=== PATIENT | female | born 1955 | race Caucasian/White ===

== ENCOUNTER 2025-10-31 14:55 | Outpatient (CLI) | payer MEDICARE, SELFPAY ==
[2025-10-31 16:33] LABS: Microscopic, Urine URINE MICROSCOPIC (MICROSCOPIC)
[2025-10-31 17:07] LABS: Hematocrit 37.4 % (37.0-47.0); Hemoglobin 12.1 g/dL (12.2-16.2); Immature Granulocytes % 0.5 %; Mean Corpuscular HGB Conc 32.4 g/dL (31.8-35.4); Mean Corpuscular Hemoglobin 29.5 pg (27.0-31.2); Mean Corpuscular Volume 91.2 fl (81-99); Nucleated Red Blood Cells % 0 %; Platelet Count 219 K/mm3 (142-424); Red Blood Count 4.10 M/mm3 (4.20-5.40); Red Cell Distribution Width-SD 42.5 fL; White Blood Count 8.5 K/mm3 (4.8-10.8)
[2025-10-31 18:06] LABS: Alanine Aminotransferase 14 U/L (12-78); Albumin Level 4.3 g/dl (3.5-5.0); Albumin/Globulin Ratio 1.3 (1.1-1.8); Alkaline Phosphatase 123 U/L (38-126); Anion Gap 14.6 mEq/L (5-15); Aspartate Amino Transferase 20 U/L (14-36); Bilirubin,Total 0.3 mg/dl (0.2-1.3); Blood Urea Nitrogen 18 mg/dl (7-17); Calcium 9.3 mg/dl (8.4-10.2); Carbon Dioxide 25 mmol/L (22.0-30.0); Chloride 103 mmol/L (98-107); Cholesterol 187 mg/dl (140-200); Creatinine,Serum 1.00 mg/dl (0.52-1.04); Estimated Glomerular Filt Rate 55 ml/min (>60); GFR (African American) 67 ML/MIN (>60); Globulin 3.4 g/dL (1.3-3.2); Glucose 102 mg/dl (74-100); HDL Cholesterol 53 mg/dl (40-60); Iron 96 ug/dL (37-170); Potassium 4.6 mmoL/L (3.5-5.1); Sodium 138 mmol/L (136-145); Total Protein,Serum 7.7 g/dl (6.3-8.2); Triglycerides 397 mg/dl (30-150)
[2025-10-31 18:16] LABS: Total Iron Binding Capacity 284 ug/dL (265-497)
[2025-10-31 18:40] LABS: Thyroid Stimulating Hormone 2.47 uIU/mL (0.465-4.68)
[2025-10-31 18:44] LABS: Ferritin 14.0 ng/ml (11.1-264)
[2025-10-31 18:59] LABS: Vitamin B12 593 pg/mL (239-931)
[2025-10-31 19:02] LABS: 25-OH Vitamin D, Total 20.4 ng/mL (30-100)
[2025-10-31 19:03] LABS: Free T4 (Free Thyroxine) 0.96 ng/dl (0.78-2.19)
[2025-10-31 19:38] LABS: Bilirubin,Urine Negative (Negative); Color,Urine YELLOW (Yellow); Glucose,Urine (UA) Negative (Negative); Ketones,Urine Negative (Negative); Leukocyte Esterase,Urine Negative (Negative); PH,Urine 5.5 (5.0-8.5); Protein,Urine Negative (Negative); Specific Gravity, Urine 1.025 (1.005-1.030); Urobilinogen,Urine 0.2 EU/dl (0.2)
[2025-10-31 21:10] LABS: Bacteria,Urine Trace /lpf; Squamous Epithelial Cell,Urine Occasional #/hpf (0-5); WBC,Urine Occasional #/hpf (0-3)
[2025-10-31 21:51] LABS: Hemoglobin A1C 5.7 % (4.0-6.0)
== END 2025-10-31 23:59 | disposition home or self-care (01) ==
LOC: LAB.DROPOF 11-01 14:47
PROVIDERS: Visit Provider Nurse Practitioner Family
DX: C50.911 Malignant neoplasm of unspecified site of right female breast (principal); E78.5 Hyperlipidemia, unspecified; F41.9 Anxiety disorder, unspecified; F32.A Depression, unspecified; E03.9 Hypothyroidism, unspecified; K21.9 Gastro-esophageal reflux disease without esophagitis; N32.81 Overactive bladder; E66.9 Obesity, unspecified; S60.410A Abrasion of right index finger, initial encounter; L08.9 Local infection of the skin and subcutaneous tissue, unspecified; Z78.0 Asymptomatic menopausal state; G43.909 Migraine, unspecified, not intractable, without status migrainosus; I10 Essential (primary) hypertension; G47.33 Obstructive sleep apnea (adult) (pediatric); E11.9 Type 2 diabetes mellitus without complications; R41.3 Other amnesia; M81.0 Age-related osteoporosis without current pathological fracture
CPT/HCPCS: 80053; 80061; 81001; 82043; 82306; 82570; 82607; 82728; 83036; 83540; 83550; 84156; 84439; 84443; 85025; 87086

== ENCOUNTER 2025-11-02 08:23 | Emergency (ER) | payer MEDICARE, SELFPAY ==
[2025-11-02 08:37] VITALS: BP 130/54; PULSE 87; RESP 16; TEMP 37.1; O2SAT 96; BMI 39.4
--- NOTE | 2025-11-02 08:47 | HMH.EDGENADL ---
Discharge Plan Disposition Patient Disposition: Home, Self-Care Prescriptions Prescriptions: New sulfamethoxazole-trimethoprim [Bactrim DS] 800-160 mg tablet 1 tab PO DAILY 7 Days Qty: 7 0RF No Action (DME) lancing device with lancets [Accu-Chek Soft Dev Lancets] Kit See Rx Instructions .ROUTE .MEDSUPPLY Qty: 1 Rx Instructions: As directed mupirocin [Centany] 2 % ointment 1 applic topical TID Qty: 15 0RF amlodipine 10 mg tablet 10 mg PO DAILY Qty: 90 3RF anastrozole 1 mg tablet 1 mg PO DAILY Qty: 30 0RF atorvastatin 20 mg tablet 20 mg PO QHS Qty: 90 3RF carbamazepine 200 mg tablet 200 mg PO TID Qty: 270 3RF cholecalciferol (vitamin D3) 10 mcg (400 unit) capsule 10 mcg PO DAILY Qty: 90 3RF citalopram 40 mg tablet 40 mg PO DAILY Qty: 90 3RF famotidine 20 mg tablet 20 mg PO BID Qty: 180 3RF hydroxyzine HCl 50 mg tablet 50 mg PO TID Qty: 90 3RF levothyroxine 112 mcg tablet 112 mcg PO QAM Qty: 90 3RF losartan 100 mg tablet 100 mg PO DAILY Qty: 90 3RF metformin 500 mg tablet 500 mg PO BID Qty: 180 3RF multivitamin Tablet 1 tab PO DAILY Qty: 90 3RF nitroglycerin 0.4 mg tablet, sublingual 0.4 mg sublingual Q5M PRN (Reason: chest pain) Qty: 30 5RF Rx Instructions: do not exceed 3 doses per episode oxybutynin chloride 5 mg tablet 5 mg PO DAILY Qty: 90 3RF Referrals Follow up/Referrals: April Sargent APRN [Primary Care Provider, Family Practice] - See instructions Activity Restrictions/Add. Instructions Additional Instructions/Restrictions: At this time it was felt you are safe to be discharged home. If new or worsening symptoms please do not hesitate to return the emergency department. Please take your antibiotics as prescribed. Please follow-up with April Sargent at 1 PM on Friday to make sure things are headed in the right direction. It is okay to shower, do not submerge your wound in water such as a hot tub or a bath. Clinical Impressions Clinical Impression: Abscess, Cellulitis Print Language Print Language: Ugandan Discharge ED Provider: Marty Morrissey General Adult HPI General Stated complaint: Infection inside R thigh Time Seen by Provider: 11/02/25 08:24 History of Present Illness HPI narrative: Patient is a 69-year-old female with past medical history of [id number] diabetes who presents to the emergency department for evaluation of a boil. Onset was acute over the last 72 hours, on her posterior right upper thigh. Due to persistent pain with sitting and no improvement she presents here for continued evaluation. No other acute complaints at this time. Please note that above description of symptoms, in this electronic medical record under categorization of recalled from ER triage doctor by RN are reflective of an initial nursing assessment, however, is not reflective of my full history and physical exam that was personally taken and clarified. Consequentially, this preceding description of symptoms, which may include the patient's categorized chief complaint in the EMR, do not reflect my personal clinical impression, and the ultimate description of history of present illness and patient stated complaints should be deferred to this section of the note. Unless stated otherwise or congruent with this section of the note, additional signs, symptoms, or incongruence should be interpreted as inaccurate with my clinical impression. Related Data Home Medications ?Medication ?Instructions ?Recorded ?Confirmed lancing device with lancets kit #1 ea 10/31/25 10/31/25 (Accu-Chek Softclix Lancing Device+Lancets kit) Previous Rx's ?Medication ?Instructions ?Recorded amlodipine 10 mg tablet 10 mg PO DAILY #90 tabs 10/31/25 anastrozole 1 mg tablet 1 mg PO DAILY #30 tabs 10/31/25 atorvastatin 20 mg tablet 20 mg PO QHS #90 tabs 10/31/25 carbamazepine 200 mg tablet 200 mg PO TID #270 tabs 10/31/25 cholecalciferol (vitamin D3) 10 10 mcg PO DAILY #90 caps 10/31/25 mcg (400 unit) capsule citalopram 40 mg tablet 40 mg PO DAILY #90 tabs 10/31/25 famotidine 20 mg tablet 20 mg PO BID #180 tabs 10/31/25 hydroxyzine HCl 50 mg tablet 50 mg PO TID #90 tabs 10/31/25 levothyroxine 112 mcg tablet 112 mcg PO QAM #90 tabs 10/31/25 losartan 100 mg tablet 100 mg PO DAILY #90 tabs 10/31/25 metformin 500 mg tablet 500 mg PO BID #180 tabs 10/31/25 multivitamin 1 tab PO DAILY #90 tabs 10/31/25 mupirocin 2 % topical ointment 1 applic topical TID #15 grams 10/31/25 (Centany) nitroglycerin 0.4 mg sublingual 0.4 mg sublingual Q5M PRN chest 10/31/25 tablet pain #30 tabs oxybutynin chloride 5 mg tablet 5 mg PO DAILY #90 tabs 10/31/25 sulfamethoxazole 800 1 tab PO DAILY cellulitis 7 days 11/02/25 mg-trimethoprim 160 mg tablet #7 tabs (Bactrim DS) Allergies Allergy/AdvReac Type Severity Reaction Status Date / Time phenytoin (From Dilantin) Allergy Intermediate itching Verified 10/31/25 13:53 Penicillins Allergy Mild itching Verified 10/31/25 13:53 codeine AdvReac Mild Hives Verified 10/31/25 13:53 phenobarbitol Allergy Mild Hives Uncoded 10/31/25 13:53 [facility] Disclaimer: The information contained in this section may have been updated after the patient was seen, as this information can be updated by other users. Medical History (Updated 11/02/25 @ 08:45 by Marty Morrissey MD) Migraines Pre-diabetes Hypertension Surgical History (Updated 10/31/25 @ 14:55 by April Sargent APRN) History of hysterectomy History of appendectomy History of cholecystectomy History of mastectomy Family History (Updated 10/31/25 @ 13:57 by Loan Kaufman MA) Other Cancer Heart attack Social History (Updated 10/31/25 @ 13:57 by Loan Kaufman MA) Smoking Status: Never smoker alcohol intake: never substance use type: denies use current occupational status: disabled Travel in the last 8 weeks?: None household members: significant other Other Medical History Have you received the Pneumonia Vaccine: No ROS Obtained: Yes Systems reviewed as appropriate & no additional complaints except as documented Physical Exam General General appearance: alert and in no apparent distress Head Head exam: atraumatic and normocephalic Eye Eye exam: Present PERRL and EOMI ENT ENT exam: Present mucous membranes moist Neck Neck exam: Present normal inspection Chest Chest inspection: Present normal inspection and symmetric chest wall rise Respiratory Respiratory exam: Absent respiratory distress Cardiovascular Cardiovascular exam: Present regular rate and normal rhythm Abdominal Exam Abdominal exam: Present soft; Absent tenderness Bimanual exam: Present other (No extension of cellulitis or boil into the perineum or perianal areas) Extremities Exam Extremities exam: Present other (1 cm area of induration with central pustule with surrounding blanchable cellulitic changes over the right posterior thigh); Absent normal inspection Neurological Exam Neurological exam: Present alert Psychiatric Psychiatric exam: Present normal affect Skin Skin exam: Present warm and dry Medical Decision Making Medical Records Screening: Per USPSTF and CDC recommendations, given the prevalence of disease in our region, it is our hospital?s policy to screen for HIV and viral Hepatitis for all patients aged 18 and over and those with ongoing risk factors. Brennan Inquiry Pt receiving controlled substance: No Orders (Tests/Meds): ORDERS Category Date Time Status POCUS Point of Care (ER Only) Stat Exams 11/02/25 08:30 Ordered Medical Decision Narrative: In summary patient is a 69-year-old female with past medical history described above who presents to the emergency department for evaluation of a boil. Patient is hemodynamically stable and nontoxic-appearing upon arrival, afebrile. [id number] ultrasound at bedside shows small subcentimeter fluid collection with surrounding cellulitic changes. No concern for deep space infection that tracks into the perineum based on physical exam and ultrasound. Shared decision making discussion was had over the utility of lancing it and we proceeded to se[place]our with minimal expression of purulent fluid with an 11 blade. Wound was dressed with nonstick dressing and patient is appropriate for discharge at this time will be discharged with a course of Bactrim and an appointment was arranged with her PCP this coming Friday to ensure things are headed in the right direction she was given return precautions. [employer] disclaimer Much of this encounter note is an electronic tool technician spoken language to printed text. Electronic tool technician of the spoken language may permit errors. Although I have reviewed the note, some errors may still exist. Critical Care Critical Care Time Critical Care Time: No
[2025-11-02] MEDS: LIDOCAINE 1% W/EPI 1:100,000 20ML VIAL 5 ML SQ (08:53)
[2025-11-02 08:54] VITALS: BP 145/75; PULSE 84; RESP 15; TEMP 37; O2SAT 99
== END 2025-11-02 08:54 | disposition home or self-care (01) ==
PROVIDERS: Emergency Provider Emergency Medicine; PCP Nurse Practitioner Family
DX: L02.415 Cutaneous abscess of right lower limb (principal); L03.115 Cellulitis of right lower limb; E11.9 Type 2 diabetes mellitus without complications; I10 Essential (primary) hypertension; Z79.84 Long term (current) use of oral hypoglycemic drugs
CPT/HCPCS: 10060; 99284; J2004

== ENCOUNTER 2025-11-05 21:14 | Emergency (ER) | payer MEDICARE, SELFPAY ==
[2025-11-05] VITALS (7 sets, daily range): BP systolic 133–142; BP diastolic 54–67; PULSE 75–85; RESP 17; TEMP 37.1; O2SAT 91–96; BMI 39.4
--- NOTE | 2025-11-05 21:14 | ED_ITS ---
<Statement entered by Alvaro Groves MD - 11/05/25 22:02> I was consulted by the JOHN, and we discussed the complexity of the problems being addressed. I approve the treatment and management plan for this patient's care in the emergency department, thus performing a substantive portion of the medical decision making. Alvaro Groves MD Discharge Plan Disposition Patient Disposition: Home, Self-Care Condition: Good Prescriptions Prescriptions: No Action (DME) lancing device with lancets [Accu-Chek Soft Dev Lancets] Kit See Rx Instructions .ROUTE .MEDSUPPLY Qty: 1 Rx Instructions: As directed mupirocin [Centany] 2 % ointment 1 applic topical TID Qty: 15 0RF amlodipine 10 mg tablet 10 mg PO DAILY Qty: 90 3RF anastrozole 1 mg tablet 1 mg PO DAILY Qty: 30 0RF atorvastatin 20 mg tablet 20 mg PO QHS Qty: 90 3RF carbamazepine 200 mg tablet 200 mg PO TID Qty: 270 3RF cholecalciferol (vitamin D3) 10 mcg (400 unit) capsule 10 mcg PO DAILY Qty: 90 3RF citalopram 40 mg tablet 40 mg PO DAILY Qty: 90 3RF famotidine 20 mg tablet 20 mg PO BID Qty: 180 3RF hydroxyzine HCl 50 mg tablet 50 mg PO TID Qty: 90 3RF levothyroxine 112 mcg tablet 112 mcg PO QAM Qty: 90 3RF losartan 100 mg tablet 100 mg PO DAILY Qty: 90 3RF metformin 500 mg tablet 500 mg PO BID Qty: 180 3RF multivitamin Tablet 1 tab PO DAILY Qty: 90 3RF nitroglycerin 0.4 mg tablet, sublingual 0.4 mg sublingual Q5M PRN (Reason: chest pain) Qty: 30 5RF Rx Instructions: do not exceed 3 doses per episode oxybutynin chloride 5 mg tablet 5 mg PO DAILY Qty: 90 3RF sulfamethoxazole-trimethoprim [Bactrim DS] 800-160 mg tablet 1 tab PO DAILY 7 Days Qty: 7 0RF Referrals Follow up/Referrals: April Sargent APRN [Primary Care Provider, Family Practice] - See instructions Activity Restrictions/Add. Instructions Additional Instructions/Restrictions: Please return to the emergency department with any worsening signs or symptoms. Please continue to take your antibiotic as prescribed. Please follow-up with your family doctor and other doctors in the upcoming days/weeks. Clinical Impressions Clinical Impression: Abscess Instructions Patient Instructions: DI for Skin Abscess, Boil Print Language Print Language: Yakut Discharge ED Provider: Alvaro Groves Adult HPI General Chief complaint: Skin/Abscess/Foreign Body Stated complaint: Boil on Right Inner Thigh Time Seen by Provider: 11/05/25 21:14 Mode of Arrival: EMS Source of Information: Patient Description of Symptoms (Recalled from ER Triage Doc. by RN): Pt presents to ER via EMS for a boil on her R inner thigh. Pt states that she was seen here 3 days ago for the boil, got it drained, and sent home with cream. Pt reports that boil has been draining fine up until today when draining stopped and boil started to swell again. History of Present Illness HPI narrative: 69-year-old female presents to the emergency department via EMS for a right posterior thigh boil , patient was seen in the emergency department 3 days ago for similar complaint, had the area I&D with an 11 blade, and was placed on Bactrim p.o. DS she has been taking medication as prescribed. Patient denies a [place] fever chills chest pain shortness of breath nausea vomiting constipation diarrhea no urinary symptomatology, patient is a former smoker denies any alcohol or drug use, states emergency visit today prompted by the boil stopped draining and started to swell again , patient endorsed soreness to the area but denies any overt new pain, other past medical history is consistent with insulin-dependent T2DM, hyperlipidemia, migraines, YEIMY/MDD, GERD, OAB, hypertension. Initial triage vitals unremarkable Please note that above description of symptoms, in this electronic medical record under categorization of recalled from ER triage doctor by RN are reflective of an initial nursing assessment, however, is not reflective of my full history and physical exam that was personally taken and clarified. Consequentially, this preceding description of symptoms, which may include the patient's categorized chief complaint in the EMR, do not reflect my personal clinical impression, and the ultimate description of history of present illness and patient stated complaints should be deferred to this section of the note. Unless stated otherwise or congruent with this section of the note, additional signs, symptoms, or incongruence should be interpreted as inaccurate with my clinical impression. Onset (ago): day(s) Related Data Home Medications ?Medication ?Instructions ?Recorded ?Confirmed lancing device with lancets kit #1 ea 10/31/25 5 (Accu-Chek Softclix Lancing Device+Lancets kit) Previous Rx's ?Medication ?Instructions ?Recorded amlodipine 10 mg tablet 10 mg PO DAILY #90 tabs 07/18 anastrozole 1 mg tablet 1 mg PO DAILY #30 tabs 10/31 atorvastatin 20 mg tablet 20 mg PO QHS #90 tabs carbamazepine 200 mg tablet 200 mg PO TID #270 tabs cholecalciferol (vitamin D3) 10 10 mcg PO DAILY #90 ca ps 10/31/25 mcg (400 unit) capsule citalopram 40 mg tablet 40 mg PO DAILY #90 tabs 07/18 famotidine 20 mg tablet 20 mg PO BID #180 tabs 10/31 hydroxyzine HCl 50 mg tablet 50 mg PO TID #90 tabs 07/18 levothyroxine 112 mcg tablet 112 mcg PO QAM #90 tabs 1 01/01/25 losartan 100 mg tablet 100 mg PO DAILY #90 tabs 07/18 metformin 500 mg tablet 500 mg PO BID #180 tabs 07/18 multivitamin 1 tab PO DAILY #90 tabs 07/18 mupirocin 2 % topical ointment 1 applic topical TID #1 5 grams 10/31/25 (Centany) nitroglycerin 0.4 mg sublingual 0.4 mg sublingual Q5M PRN chest 10/31/25 tablet pain #30 tabs oxybutynin chloride 5 mg tablet 5 mg PO DAILY #90 tabs 10/31/25 sulfamethoxazole 800 1 tab PO DAILY cellulitis 7 days 11/02/25 mg-trimethoprim 160 mg tablet #7 tabs (Bactrim DS) Allergies Allergy/AdvReac Type Severity Reaction Status Date / Time phenytoin (From Dilantin) Allergy Intermediate itching Verified 10/31/25 13:53 Penicillins Allergy Mild itching Verified 10/31/25 13:53 codeine AdvReac Mild Hives Verified 10/31/25 13:53 phenobarbitol Allergy Mild Hives Uncoded 10/31/25 13:53 [facility] Disclaimer: The information contained in this section may have been updated after the patient was seen, as this information can be updated by other users. Medical History (Updated 11/05/25 @ 21:48 by SEN Molina) Migraines Pre-diabetes Hypertension Surgical History (Updated 10/31/25 @ 14:55 by April Sargent APRN) History of hysterectomy History of appendectomy History of cholecystectomy History of mastectomy Family History (Updated 10/31/25 @ 13:57 by Loan Kaufman MA) Other Cancer Heart attack Social History (Updated 10/31/25 @ 13:57 by Loan Kaufman MA) Smoking Status: Former smoker alcohol intake: never substance use type: denies use current occupational status: disabled Travel in the last 8 weeks?: None household members: significant other Have you lived/traveled outside [place] in past 30 days?: No Contact w/someone who lives/traveled outside [place] past 30 days?: No Exposure to someone with infectious disease in past 14 days?: No Do you have a fever (greater than 100.4 F or 38 C)?: No Have you tested positive for COVID-19?: No Exposed to someone with COVID-19 in past 14 days?: No Do you have a sore throat?: No Do you have a cough?: No Do you have any weakness?: No Do you have any diarrhea?: No Are you experiencing any unusual bleeding?: No Do you have any muscle aches/pain?: No Do you have any abdominal pain?: No Are you experiencing loss of taste or smell?: No Other Medical History Have you received the Pneumonia Vaccine: No ROS Obtained: Yes All systems reviewed & no additional complaints except as documented Physical Exam General General appearance: alert and in no apparent distress Head Head exam: atraumatic and normocephalic Eye Eye exam: Present PERRL and EOMI ENT ENT exam: Present mucous membranes moist Neck Neck exam: Present normal inspection Chest Chest inspection: Present normal inspection and symmetric chest wall rise Respiratory Respiratory exam: Present normal lung sounds bilaterally; Absent respiratory distress Cardiovascular Cardiovascular exam: Present regular rate and normal rhythm Abdominal Exam Abdominal exam: Present soft; Absent tenderness Extremities Exam Extremities exam: Present normal inspection Neurological Exam Neurological exam: Present alert and oriented X3 Psychiatric Psychiatric exam: Present normal affect Skin Skin exam: Present warm, dry, erythema and other (Area of erythema, minimal fluctuant and what looks like furuncle versus carbuncle in the right posterior thigh, with active purulent drainage) Medical Decision Making Medical Records Medical records reviewed: Yes I reviewed the patient's medical records. Screening: Per USPSTF and CDC recommendations, given the prevalence of disease in our region, it is our hospital?s policy to screen for HIV and viral Hepatitis for all patients aged 18 and over and those with ongoing risk factors. Brennan Inquiry Pt receiving controlled substance: No Brennan was queried for this patient: No Vital Signs: 11/05/25 21:07 11/05/25 21:14 11/05/25 21:15 Temperature 98.8 F Temperature Source Oral Pulse Rate 75 77 Pulse Rate [Left Radial] 85 Respiratory Rate 17 Blood Pressure [Right Arm] 142/67 H Blood Pressure Mean [Right Arm] 92 Blood Pressure Source [Right Arm] Automatic Cuff Blood Pressure Position [Right Arm] Sitting 02 Sat by Pulse Oximetry 96 91 L Oxygen Delivery Method Room Air Room Air Medical Decision Narrative: 69-year-old female presents emergency department via EMS for a right posterior thigh differential diagnose include but not limited to, furuncle, carbuncle, cellulitis, abscess among others. I discussed this patient's case with the attending physician I after obtaining informed consent, performed I&D at the bedside, after sterile procedure was performed, copious irrigation, see procedure note for full details, offered sedation versus analgesia to the patient the bedside, patient denied at this time would like to pursue stab incision and drainage. Utilizing 11 blade and very small stab incision, 25 cc of purulent drainage and blood was expelled from the area, patient tolerated the procedure well. Wound dressing with bacitracin was applied postprocedure. Patient was given strict ED return precautions, patient was advised to stay on her p.o. antibiotic as prescribed. Keep the area clean and dry and covered. Patient has slated follow-up for this in the upcoming days I have asked her to keep this appointment. Patient voiced understanding and agreement with the current treatment plan/discharge plan. Procedures Abscess I/D Site: lower extremity Side (if applicable): right Sedation/analgesia: none Local Anesthetic: other anesthetic Technique: incised with #11 blade Amount of fluid expressed (mL): 25 Irrigation: Yes Packing used?: none Critical Care Critical Care Time Critical Care Time: No
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
--- OUTSIDE RECORDS SUMMARY | 2025-11-05 21:22 | XMS_ITS | Encounter Summary ---
Author Organization Healthcare Address [address] [id number] Care Team Providers Care Managed Care Manager Name Role Phone Zan Sidhu MD Primary Care Provider [phone] Emerita Cook Unavailable Unavailable Encounter Details Date Type Department Care Team (Late st Contact Info) Description 10/07/2025 [facility] Internal Medicine [address], [address] [place] [address] Zan Sidhu MD [address] [phone] Social History Tobacco Use Types Packs/Day Years [...] Never 08/21/2023 How often do you attend chur ch or anglican services? More than 4 times per year 08/21/2023 Do you belong to any clubs o r organizations such as holiness groups, unions, fraternal or athletic groups, or [...] Recorded Patient Health Questionnaire-2 Score 0 05/05/2025 [facility] - Occupational Stress Questionnaire Answer Date Recorded [...] place to sleep or slept in a jail (including now)? No 08/09/2024 PHQ-9 Answer Date [...] any time in the past 12 m [facility], were you homeless or living in a jail (including now)? No 04/04/2025 AUDIT-C Answer Date [...] drink first t radha in the morning (EYE-JIG BUILDER HELPER) to steady your nerves or to get rid of a hangover? 0 03/01/2023 CAGE Questionnaire Score 0 023 Utilities Answer Date Recorded In the past 12 months has th e electric, gas, oil, or water [employer] threatened to shut off services in your home? No 04/04/2025 PHQ-2A Answer Date Recorded Patient Health Questionnaire-2 Score 0 01/14/2023 Comments No Sex and Gender Information Value Date Recorded Sex Assigned at Not on file Legal Sex Female 7:27 PM EDT Gender Identity Not on file Sexual Orientation Not on file documented as of this encounter Miscellaneous Notes * Telephone Encounter - Zan Lawler, PharmD - 10/07/2025 4:15 PM EST 1 medication(s) has been approved per protocol. Please keep upcoming appointment for additional refills. Medications have been pended for refill atupcoming appointment. documented in this encounter Plan of Treatment Upcoming Encounters Date Type Department Care Team (Late st Contact Info) Description 11/25/2025 9:30 AM EST Appointment [facility] [address] [address] [address] [facility] [address] [place] [address] 11/25/2025 10:30 AM EST Office Visit [facility] Breast Care [place] [address] [facility], [address]nd [place] [address] Olivia Feldman MD [address] [facility] [address] [address] documented as of this encounter Visit Diagnoses [...] documented as of this encounter Care Teams Managed Care Manager Relationship Specialty Start Date End Date Zan Sidhu MD [address] [place] [address] PCP - General Internal Medicine 05/24/25 [place] [address] Glass Inserter 09/01/25 10/31/25 documented as of this encounter
--- OUTSIDE RECORDS SUMMARY | 2025-11-05 21:22 | XMS_ITS | Encounter Summary ---
Author Organization Healthcare Address [address] [place] [address] Care Team Providers Care Hard Tile Setter Apprentice Name Role Phone Zan Sidhu MD Primary Care Provider Emerita Cook Unavailable Unavailable Reason for Visit * Reason Comments SW NOTE Encounter Details Date Type Department Care Team (Late st Contact Info) Description 09/06/2025 [facility] Work [facility] Internal Medicine [address], [address]rd [place] [address] Pam Eaton [address] Social History Tobacco Use Types Packs/Day Years [...] Never 08/21/2023 How often do you attend [facility] or alevism services? More than 4 times per year 08/21/2023 Do you belong to any clubs o r organizations such as jain groups, unions, fraternal or athletic groups, or [...] Recorded Patient Health Questionnaire-2 Score 0 05/05/2025 [facility] - Occupational Stress Questionnaire Answer Date [...] place to sleep or slept in a assisted (including now)? No 08/09/2024 PHQ-9 Answer Date [...] any time in the past 12 m [facility], were you homeless or living in a assisted (including now)? No 04/04/2025 AUDIT-C Answer Date [...] drink first t radha in the morning (EYE-PLANT PHYSIOLOGY TEACHER) to steady your nerves or to get rid of a hangover? 0 03/01/2023 CAGE Questionnaire Score 0 023 Utilities Answer Date Recorded In the past 12 months has th e electric, gas, oil, or water company threatened to shut off services in your home? No 04/04/2025 PHQ-2A Answer Date Recorded Patient Health Questionnaire-2 Score 0 01/14/2023 Comments No Sex and Gender Information Value Date Recorded Sex Assigned at Not on file Legal Sex Female 7:27 PM EDT Gender Identity Not on file Sexual Orientation Not on file documented as of this encounter Miscellaneous Notes * Clinician Note - Pam Eaton - 09/06/2025 1:58 PM EDT ROBERT lvm for Pt requesting a call back . * Clinician Note - Pam Eaton - 09/06/2025 1:58 PM EDT ROBERT left another VM for patient requesting a call back. documented in this encounter Plan of Treatment Upcoming Encounters Date Type Department Care Team (Late st Contact Info) Description 11/25/2025 9:30 AM EST Appointment [facility] [address] [address] [address] [facility] [address] [place] [address] 11/25/2025 10:30 AM EST Office Visit [facility] [address] [facility], 2nd [place] [address] Olivia Feldman MD [address] [facility] [address] [facility] [address] [place] [address] documented as of this encounter Visit Diagnoses [...] documented as of this encounter Care Teams Hard Tile Setter Apprentice Relationship Specialty Start Date End Date Zan Sidhu MD [address] [place] [address] PCP - General Internal Medicine 05/24/25 [place] [address] Log Chipper Operator 09/01/25 10/31/25 documented as of this encounter
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
--- OUTSIDE RECORDS SUMMARY | 2025-11-05 21:22 | XMS_ITS | Encounter Summary ---
Author Organization Healthcare Address [address] [id number] Care Team Providers Care Electronic Service Technician Name Role Phone Zan Sidhu MD Primary Care Provider Javidcandie Emerita Unavailable Unavailable Encounter Details Date Type Department Care Team (Late st Contact Info) Description 10/06/2025 [facility] Internal Medicine [address], [address]rd [place] [address] Whitney Hoover [address] [place] [address] Type 2 diabetes mellitus without complication, without long-term current use of insulin Social History Tobacco Use Types Packs/Day Years [...] 08/21/2023 How often do you attend chur or jain services? More than 4 times per year 08/21/2023 Do you belong to any clubs o r organizations such as yazidism groups, unions, fraternal or athletic groups, or [...] Recorded Patient Health Questionnaire-2 Score 0 05/05/2025 [facility] - Occupational Stress Questionnaire Answer Date Recorded [...] place to sleep or slept in a penitentiary (including now)? No 08/09/2024 PHQ-9 Answer Date [...] any time in the past 12 m [facility], were you homeless or living in a penitentiary (including now)? No 04/04/2025 AUDIT-C Answer Date [...] drink first t radha in the morning (EYE-JANITOR CARETAKER) to steady your nerves or to get [...] encounter Miscellaneous Notes * Telephone Encounter - Ellie Yeh, PharmD - 10/07/2025 2:00 PM EST 1 medication(s) has been approved per protocol. Please keep upcoming appointment 10/19/25 for additional refills. Medications have been pended for refill at upcoming appointment. documented in this encounter Plan of Treatment Upcoming Encounters Date Type Department Care Team (Late st Contact Info) Description 11/25/2025 9:30 AM EST Appointment [facility] [address] [place] [address] 11/25/2025 10:30 AM EST Office Visit [facility] Breast Care Center [address] [facility], 2nd [place] [address] Olivia Feldman MD [address] [address] documented as of this encounter Visit Diagnoses Diagnosis Type 2 diabetes mellitus without complication, without long-term current use of insulin documented in this encounter Additional Health Concerns Assessment Noted Time PHQ-9 Depression Total Score: 0 05/05/20 10:21 AM EDT A fall risk assessment has been complete d for the patient 07/13/2025 11:13 AM EDT A Body Mass Index follow-up plan has been documented for the patient 07/13/2025 11:59 AM EDT documented as of this encounter Care Teams Electronic Service Technician Relationship Specialty Start Date End Date Zan Sidhu MD [address] [place], [place] [phone] PCP - General Internal Medicine 05/24/25 [place] [address] Media Buyer 09/01/25 10/31/25 documented as of this encounter
--- OUTSIDE RECORDS SUMMARY | 2025-11-05 21:22 | XMS_ITS | Encounter Summary ---
Author Organization Healthcare Address [address] [place] [address] Care Team Providers Care Career Placement Services Counselor Name Role Phone Zan Sidhu MD Primary Care Provider [phone] JavidJulienne schreiberyl Unavailable Unavailable Encounter Details Date Type Department Care Team (Late st Contact Info) Description 10/06/2025 Refill [facility] [address] [place] [address] Olivia Feldman MD [address] [facility] [address] [place] [address] Malignant neoplasm of 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, estrogen receptor positive Social History Tobacco Use Types Packs/Day Years [...] How often do you attend chur or latter-day services? More than 4 times per year 08/21/2023 Do you belong to any clubs o r organizations such as pentecostalism groups, unions, fraternal or athletic groups, or [...] Recorded Patient Health Questionnaire-2 Score 0 05/05/2025 [facility] Occup[facility] - Occupational Stress Questionnaire Answer Date [...] place to sleep or slept in a half-way (including now)? No 08/09/2024 PHQ-9 Answer Date [...] any time in the past 12 m [facility], were you homeless or living in a half-way (including now)? No 04/04/2025 AUDIT-C Answer Date [...] drink first t radha in the morning (EYE-MEDICATION RECONCILIATION TECHNICIAN) to steady your nerves or to get [...] on file documented as of this encounter Plan of Treatment Upcoming Encounters Date Type Department Care Team (Late st Contact Info) Description 11/25/2025 9:30 AM EST Appointment [facility] [address] [place] [address] 11/25/2025 10:30 AM EST Office Visit [facility] [address] [facility], 2nd [place] [address] Olivia Feldman MD [address] [facility] [address] [facility] [address] [place] [address] documented as of this encounter Visit Diagnoses Diagnosis Malignant neoplasm of 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, estrogen receptor positive documented in this encounter Additional Health Concerns Assessment Noted Time PHQ-9 Depression Total Score: 0 05/05/20 10:21 AM EDT A fall risk assessment has been complete d for the patient 07/13/2025 11:13 AM EDT A Body Mass Index follow-up plan has been documented for the patient 07/13/2025 11:59 AM EDT documented as of this encounter Care Teams Career Placement Services Counselor Relationship Specialty Start Date End Date Zan Sidhu MD [address] [place] [address] PCP - General Internal Medicine 05/24/25 [place] [address] Environmental Quality Analyst 09/01/25 10/31/25 documented as of this encounter
--- OUTSIDE RECORDS SUMMARY | 2025-11-05 21:22 | XMS_ITS | Encounter Summary ---
Author Organization Healthcare Address [address] [id number] Care Team Providers Care Mellowing Machine Operator Name Role Phone Zan Sidhu MD Primary Care Provider Joyce Emerita Unavailable Unavailable Encounter Details Date Type Department Care Team (Late st Contact Info) Description 09/19/2025 Telephone [facility] Internal Medicine [address], [address] [place] [address] Zan Sidhu MD [address] [id number] Social History Tobacco Use Types Packs/Day Years [...] often do you attend chur ch or tenriism services? More than 4 times per year 08/21/2023 Do you belong to any clubs o r organizations such as christianity groups, unions, fraternal or athletic groups, or [...] Recorded Patient Health Questionnaire-2 Score 0 05/05/2025 [facility] - Occupational Stress Questionnaire Answer Date [...] place to sleep or slept in a fci (including now)? No 08/09/2024 PHQ-9 Answer Date [...] any time in the past [address] [facility], were you homeless or living in a fci (including now)? No 04/04/2025 AUDIT-C Answer Date [...] drink first t radha in the morning (EYE-TEST FACILITY ENGINEER) to steady your nerves or to get rid of a hangover? 0 03/01/2023 CAGE Questionnaire Score 0 023 Utilities Answer Date Recorded In the past 12 months has th e electric, gas, oil, or water [employer] threatened to shut off services in your home? No 04/04/2025 PHQ-2A Answer Date Recorded Patient Health Questionnaire-2 Score 0 01/14/2023 Comments No Sex and Gender Information Value Date Recorded Sex Assigned at Not on file Legal Sex Female 7:27 PM EDT Gender Identity Not on file Sexual Orientation Not on file documented as of this encounter Miscellaneous Notes * Telephone Encounter - Awilda Solorzano - 09/19/2025 10:05 AM EDT Printed and mailed per request. documented in this encounter Plan of Treatment Upcoming Encounters Date Type Department Care Team ([facility] st Contact Info) Description 11/25/2025 9:30 AM EST Appointment [facility] [place] [facility] [address] [facility] [address] [place] [address] 11/25/2025 10:30 AM EST Office Visit [facility] [place] [address] [facility], [address] [place] [address] Olivia Feldman MD [address] [facility] [address] [place] [address] documented as of this encounter Visit Diagnoses [...] documented as of this encounter Care Teams Mellowing Machine Operator Relationship Specialty Start Date End Date Zan Sidhu MD [address] [place] [address] PCP - General Internal Medicine 05/24/25 [place] [address] Editorial Clerk 09/01/25 10/31/25 documented as of this encounter
--- OUTSIDE RECORDS SUMMARY | 2025-11-05 21:22 | XMS_ITS | Encounter Summary ---
Author Organization Healthcare Address [address] [place] [address] Care Team Providers Care Urban Planning Professor Name Role Phone Zan Sidhu MD Primary Care Provider Javidcandie Emerita Unavailable Unavailable Encounter Details Date Type Department Care Team (Late st Contact Info) Description 09/19/2025 Telephone [facility] [address] [place] [address] Olivia Feldman MD [address] [facility] [address] [place] [address] Social History Tobacco Use Types Packs/Day Years [...] often do you attend chur ch or jainism services? More than 4 times per year 08/21/2023 Do you belong to any clubs o r organizations such as samaritan groups, unions, fraternal or athletic groups, or [...] Recorded Patient Health Questionnaire-2 Score 0 05/05/2025 [facility] - Occupational Stress Questionnaire Answer [...] place to sleep or slept in a longterm (including now)? No 08/09/2024 PHQ-9 Answer Date [...] any time in the past 12 m [facility], were you homeless or living in a longterm (including now)? No 04/04/2025 AUDIT-C Answer Date [...] drink first t radha in the morning (EYE-SURGERY TEACHER) to steady your nerves or to get rid of a hangover? 0 03/01/2023 CAGE Questionnaire Score 0 023 Utilities Answer Date Recorded In the past 12 months has th e electric, gas, oil, or water [employer] threatened to shut off services in your home? No 04/04/2025 PHQ-2A Answer Date Recorded Patient Health Questionnaire-2 Score 0 01/14/2023 Comments No Sex and Gender Information Value Date Recorded Sex Assigned at Not on file Legal Sex Female 7:27 PM EDT Gender Identity Not on file Sexual Orientation Not on file documented as of this encounter Miscellaneous Notes * Telephone Encounter - Mame Sanchez RN - 09/19/2025 12:03 PM EDT Mailed appt reminders to patient. documented in this encounter Plan of Treatment Upcoming Encounters Date Type Department Care Team (Late st Contact Info) Description 11/25/2025 9:30 AM EST Appointment [facility] [place] [facility] [address] [address] [address] [facility] [address] [place] [address] 11/25/2025 10:30 AM EST Office Visit [facility] [place] [address] [facility], [address]nd [place] [address] Olivia Feldman MD [address] [facility] [address] [address] documented as of this encounter Visit Diagnoses [...] documented as of this encounter Care Teams Urban Planning Professor Relationship Specialty Start Date End Date Zan Sidhu MD [address] [place] [address] PCP - General Internal Medicine 05/24/25 [place] [address] Overhead Crane Inspector 09/01/25 10/31/25 documented as of this encounter
--- OUTSIDE RECORDS SUMMARY | 2025-11-05 21:22 | XMS_ITS ---
Author Organization [facility] Address [address] [place] [address] Care Team Providers Care Net Software Developer Name Role Phone Zan Sidhu MD Primary Care Provider [phone] ElderCare Navigator Status:Closed (Closed) Program category:Care Coordination Start date:09/01/2025 Enrollment date:09/01/2025 Enrollment reason:Self-enrolled End date:10/31/2025 Close reason:Patient graduated Overview Concern as vulnerable adult Continued Care and Services Coordination
--- OUTSIDE RECORDS SUMMARY | 2025-11-05 21:22 | XMS_ITS | Encounter Summary ---
Author Organization Healthcare Address [address] [place] [address] Care Team Providers Care Framer Name Role Phone Zan Sidhu MD Primary Care Provider Emerita Cook Unavailable Unavailable Encounter Details Date Type Department Care Team (Late st Contact Info) Description 09/19/2025 Telephone [facility] [address] [place] [address] Rad Coleman MD [address] [place] [address] Social History Tobacco Use Types Packs/Day Years [...] often do you attend chur ch or sikh services? More than 4 times per year 08/21/2023 Do you belong to any clubs o r organizations such as caodaism groups, unions, fraternal or athletic groups, or [...] Recorded Patient Health Questionnaire-2 Score 0 05/05/2025 [facility] - Occupational [...] any time in the past 12 m [facility], were you homeless or living in [...] drink first t radha in the morning (EYE-AIRPLANE TECHNICIAN) to steady your nerves or to get rid of a hangover? 0 03/01/2023 CAGE Questionnaire Score 0 04/08/2 023 Utilities Answer Date Recorded In the [...] [facility] [address] [facility] [address] [place] [address] 11/25/2025 10:30 AM EST Office Visit [facility] [address] [facility], [address] [place] [address] Olivia Feldman MD [address] [facility] [address] [facility] [address] [place] [address] documented as of this encounter Visit Diagnoses [...] documented as of this encounter Care Teams Framer Relationship Specialty Start Date End Date Zan Sidhu MD [address] [place] [address] PCP - General Internal Medicine 05/24/25 [place] [address] Supervisor Doping 09/01/25 10/31/25 documented as of this encounter
--- OUTSIDE RECORDS SUMMARY | 2025-11-05 21:23 | XMS_ITS | Encounter Summary ---
Author Organization Healthcare Address [address] [place] [address] Care Team Providers Care Power Chisel Operator Name Role Phone Zan Sidhu MD Primary Care Provider Javidcandie Emerita Unavailable Unavailable Encounter Details Date Type Department Care Team (Late st Contact Info) Description 08/24/2025 Telephone [facility] [address] [place] [address] Radha Canas, PharmD [address] [facility] [address] [place] [address] Social History Tobacco Use Types Packs/Day Years [...] often do you attend chur ch or evangelical services? More than 4 times per year 08/21/2023 Do you belong to any clubs o r organizations such as adventism groups, unions, fraternal or athletic groups, or [...] Recorded Patient Health Questionnaire-2 Score 0 05/05/2025 [facility] ional [facility] - Occupational [...] place to sleep or slept in a correction (including now)? No 08/09/2024 PHQ-9 Answer Date [...] any time in the past 12 m [facility], were you homeless or living in a correction (including now)? No 04/04/2025 AUDIT-C Answer Date [...] drink first t radha in the morning (EYE-INFORMATICA DEVELOPER) to steady your nerves or to get [...] [facility] [address] [facility] [address] [place] [address] 11/25/2025 10:30 AM EST Office Visit [facility] [address] [facility], [address]nd [place] [address] Olivia Feldman MD [address] [facility] [address] [facility] [address] [place] [address] documented as of this encounter Visit Diagnoses [...] documented as of this encounter Care Teams Power Chisel Operator Relationship Specialty Start Date End Date Zan Sidhu MD [address] [place] [address] PCP - General Internal Medicine 05/24/25 [place] [address] Domestic Technician 09/01/25 10/31/25 documented as of this encounter
--- OUTSIDE RECORDS SUMMARY | 2025-11-05 21:23 | XMS_ITS | Clinical Summary ---
Author Organization Healthcare Address [address] [place] [id number] Care Team Providers Care Business Operations Director Name Role Phone Zan Sidhu MD Primary Care Provider Allergies Active Allergy Reactions Criticality Noted Date Comments Codeine Itching,Unknown - Pa tient states they do not know rxn details Medium 08/18/2019 Penicillins Itching,Unknown - Pa tient states they do not know rxn details Medium 08/18/2019 Phenobarbital Rash,Unknown - Patie nt states they do not know rxn details Low 08/18/2019 Phenytoin Itching,Unknown - Pa tient states they do not know rxn details Medium 08/18/2019 Sulfa Drugs Hives,Unknown - Joanna ent states they do not know rxn details Medium 02/18/2020 Medications * This document contains information received from the source organization and may not represent a complete record from that organization. nitroglycerin (Nitrostat) 0.[address] 1 tablet (0.4 mg) under the tongue every 5 (five) minutes if needed for chest pain. 75 tablet 5 09/03/20 23 Active albuterol 108 (90 Base) MCG/ACT inhaler INHALE 1 TO 2 PUFFS EVERY 4 TO 6 HOURS NEEDED 1 each 3 09/08/20 24 Active hydrOXYzine HCl (Atarax) 50 MG tablet Take 1 tablet (50 mg) by mouth 3 (three) times a day if needed for anxiety. 270 tablet 3 12/08/19 25 Active citalopram (CeleXA) 40 MG tabletIndications: Anxiety Take 1 tablet (40 mg) by mouth 1 (one) time each day. 90 tablet 3 12/18/19 25 Active cholecalciferol (Vitamin D-3) 10 MCG (400 UNIT) tabletIndications: Vitamin D deficiency Take 1 tablet by mouth daily. 90 tablet 3 04/04/20 25 Active Bacillus Coagulans-Inulin (Probiotic) 1-250 BILLION-MG capsule Take 1 Capful by mouth daily. Take 1 capsule daily to help prevent diarrhea 90 capsule 04/07/20 25 Active therapeutic multivitamin-drivers license examiner als (Theragran-M) tabletIndications: Type 2 diabetes mellitus treated without insulin Take 1 tablet by mouth daily. 90 tablet 2 07/13/20 25 Active Alcohol Swabs padsIndications:Ty pe 2 diabetes mellitus treated without insulin Please use to clean finger before each glucose check twice daily as needed. 200 each 1 07/13/20 25 Active famotidine (Pepcid) 20 MG tabletIndications: Generalized anxiety disorder Take 1 tablet by mouth 2 times a day. 180 tablet 1 07/13/20 25 Active trimethoprim-polym yxin b (Polytrim) ophthalmic solution 06/28/20 25 Active loperamide (Imodium A-D) 2 MG tabletIndications: Chronic diarrhea Take 1 tablet by mouth 4 times a day as needed for diarrhea. 30 tablet 07/13/20 25 Active oxybutynin (Ditropan) 5 MG tabletIndications: Nocturnal enuresis Take 1 tablet by mouth nightly. Take 1 hour prior to bed time. 90 tablet 3 07/13/20 25 026 Active Accu-Chek Softclix Lancets lancetsIndications :Type 2 diabetes mellitus treated without insulin use for testing bid 200 each 3 07/13/20 25 Active levothyroxine (Synthroid, Levoxyl) 112 MCG tabletIndications: Acquired hypothyroidism Take 1 tablet by mouth daily. 90 tablet 3 08/22/20 25 026 Active amLODIPine (Norvasc) 10 MG tablet Take 1 tablet by mouth daily. 90 tablet 3 07/15/20 25 Active bisacodyl (Dulcolax) 5 MG EC tablet Take all 4 tablets at 4 PM on day before colonoscopy . Do not crush, chew, or split. 4 tablet 07/26/20 25 Active polyethylene glycol (Golytely) 236 g solution SEE PHARMACY NOTE FOR PT INSTRUCTIONS 4000 mL 07/26/20 25 Active atorvastatin (Lipitor) 20 MG tabletIndications: Hyperlipidemia, unspecified hyperlipidemia type Take 1 tablet by mouth daily. 90 tablet 08/29/20 25 Active metFORMIN (Glucophage) 500 MG tabletIndications: Type 2 diabetes mellitus treated without insulin Take 1 tablet by mouth 2 times a day with meals. 180 tablet 08/29/20 25 Active Lancet Devices (Lancing Device) miscIndications:Ty pe 2 diabetes mellitus treated without insulin use for testing bid 1 each 08/29/20 25 Active anastrozole (Arimidex) 1 MG chemo tabletIndications: Malignant neoplasm of 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, estrogen receptor positive Take 1 tablet (1 mg total) by mouth daily. Swallow whole with a drink of water. 90 tablet 3 10/06/20 25 Active glucose blood (Accu-Chek Ivon Plus) test stripIndications:T ype 2 diabetes mellitus without complication, without long-term current use of insulin Use for testing twice daily 200 strip 10/07/20 Active losartan (Cozaar) 100 MG tablet Take 1 tablet by mouth daily. 90 tablet 10/07/20 25 Active carBAMazepine (TEGretol) 200 MG tabletIndications: Seizure disorder (CMS/HCC) Take 1 tablet by mouth 3 times a day. 270 tablet 1 10/31/20 25 Active losartan (Cozaar) 100 MG tablet TAKE 1 TABLET EVERY DAY 90 tablet 3 05/25/20 24 025 Discontin ued(Reord er) carBAMazepine (TEGretol) 200 MG tabletIndications: Seizure disorder (CMS/HCC) Take 1 tablet by mouth 3 times a day. 270 tablet 07/13/20 25 025 Discontin ued(Reord er) Active Problems Problem Noted Date Diagnosed Date Hyperlipidemia 10/18/2025 Overview (10/18/2025): Last Labs: Latest Reference Range & Units 04/04/25 10:15 Cholesterol <200 mg/dL 131 Triglycerides <150 mg/dL 179 (H) HDL >=50 mg/dL 50 Cholesterol/HDL Ratio 3 LDL Calculated <100 mg/dL 52 Fasting greater than or equal to 12 hours? Yes (H): Data is abnormally high PLAN: Refilling Atorvastatin 20mg Nocturnal enuresis 07/13/2025 Overview (10/18/2025): Started Oxybutynin 5mg 1 hour prior to bedtime on 06/2025 - I can't hold my water - wearing diapers - needs mattress pads - feels quick urge to urinate but cannot get to the bathroom fast enough, needs to go around 0300 and can't get out of bed fast enough to get to the bathroom A/ chronic, stable, controlled P/ continue oxybutynin 5mg to take 1 hour prior to bed time Persistent headaches 06/15/2025 Overview (06/15/2025): Reports intermittent headaches that started after a fall in 2024 History difficult to obtain, but appears headaches are bilateral and wrap around front of her head Headaches occur less than weekly and have not been severe - has headache today which is worse than it normally is - has not tried NSAIDs as ibuprofen gives her rash - she feels like her headaches are worse after losing her little brother in 02/2025 - not associated with positional changes - no blood thinners A/ chronic, intermittent, mild-mod, likely tension-type. H/o breast cancer, so should consider malignancy if concerning signs/symptoms in history P/ Administered tylenol 975mg in clinic. Patient declined toradol. Deferred head imaging as her history does not spark concern for intracranial bleed or pathology, no neurological symptoms. But can re-consider if headaches worsen in severity or frequency, especially in light of her history of breast cancer. 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, estrogen receptor positive 03/22/2020 Cancer Staging:Clinical stage from 02/07/2020:Stage IB(cT2, cN0, cM0, G1, ER+, AL+, HER2-) - Unsigned Pathologic stage from 09/06/2020: ypT1c, ypN0(sn), cM0, G1, ER+, AL+, HER2- - Signed by Amna Gerber MD on 01/21/2022 Overview (09/04/2021): Malignant neoplasm of unspecified site of unspecified female breast MCI (mild cognitive impairment) 03/22/2020 Healthcare maintenance 01/12/2020 Overview (10/18/2025): - Due for lung cancer screening- ordered-- unable to schedule with patient - Due for colonoscopy-- diagnostic ordered iso chronic diarrhea, however unable to schedule -- cannot call patient - Due for Shingles #2, other vaccines UTD-- Encourage to get shingles from pharmacy - Next Dexa due 04/2026 Acquired hypothyroidism 09/20/2019 Overview (10/18/2025): Synthroid 112mcg (increased after last visit) Last TSH 3.97 (06/2025) Unclear if symptomatic, history difficulty to obtain A/ chronic, not at goal, improved P/ Repeat TSH today, goal <3.0 Seizure disorder 09/05/2019 Generalized anxiety disorder 08/18/2019 Overview (07/13/2025): - having financial stress, housing instability, lost her little brother in February 2025, lost her 2017 - Wants to talk to clinical social worker; wants us to reach out to her landlord ([phone]), message sent to clinical social worker - Lives with a roommate, reports he has not paid his rent; she wants to move out before winter (Oct) bc neighbor bothering her - She's been visiting senior center for socialization, playing [employer] - clinic SW reached out but was unable to connect with [employer], she reports her VM was messed up. PLAN - will send message to clinic SW. Confirmed phone number in the chart is correct. Advised Jacob to keep track of phone calls and VM so ROBERT can assist in setting up follow up appointments, transportation to and from diagnostic tests, etc. Gastroesophageal reflux disease without esophagi tis 08/18/2019 Primary hypertension 08/18/2019 Overview (10/18/2025): Takes [id number] daily, Losartan 100mg daily BP in office 120/74 Most recent labs remain stable A/ chronic, well controlled, stable P/ continue regimen as above, refilled losartan. No changes today. BMP q6mo Type 2 diabetes mellitus treated without insulin 08/18/2019 Overview (10/18/2025): Takes Metformin 500mg BID BG at home around 100s Last A1c: 5.9 06/2025 POC A1c today: Reports good adherence to medication, denies side effects A/ chronic, stable, well controlled P/ continue metformin 500 BID. Refilled today. Resolved Problems Problem Noted Date Diagnosed Date Resolved Date Chronic diarrhea 07/13/2025 10/16/2025 Overview (07/13/2025): Been going on for years Improves with loperamide but she ran out and had return of symptoms Had C. Diff in the past, but has had negative workup since that time. Had negative inflammatory markers, fecal calpro, infectious workup. Due for screening colonoscopy A/ chronic, stable, uncontrolled, likely IBS related, but would like to rule out microscopic colitis or other inflammatory etiologies P/ will order diagnostic colonoscopy. Refilled loperamide, holding magnesium Laceration of forehead, initial encounter 03/06/2023 04/21/2024 Fall from standing, initial encounter 03/01/2023 04/21/2024 Clostridium difficile enterocolitis 06/22/2022 06/12/2023 MAZIN (acute kidney injury) 06/19/2022 Second hand smoke exposure 04/11/2022 0 04/21/2024 Hyponatremia 04/03/2021 04/21/2024 Weight loss, unintentional 03/22/2020 0 06/12/2023 Breast cancer screening 01/27/2020 07/2 Carpal tunnel syndrome 12/21/201904/21 Prediabetes 12/21/2019 01/18/2022 Encounters Date Type Department Care Team Description 10/27/2025 Refill [facility] [address], [address] [place] [address] Zan Sidhu MD Seizure disorder ([facility] 10/24/2025 Patient Outreach [facility] [address] [facility] [facility], [address] [place] [address] Emerita Cook w/[facility] 10/07/2025 Refill [facility] [address], [address] [place] [address] Zan Sidhu MD 10/06/2025 Refill [facility] [address] [place] [id number] [facility] Type 2 diabetes mellitus without complication, without long-term current use of insulin 10/06/2025 Refill [facility] [address] [place] [address] Olivia Feldman MD Malignant neoplasm of 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, estrogen receptor positive 09/19/2025 Telephone [facility] [address] [facility] [place] [address] Zan Sidhu MD 09/19/2025 Telephone [facility] [address] [place] [address] Olivia Feldman MD 09/19/2025 Telephone [facility] Medicine Specialties [address] [place] [address] Rda Coleman MD 09/13/2025 Telephone [facility] [address] [place] [address] Aicha Campbell, PharmD Medication Therapy Management 09/06/2025 [facility] [address] [facility], [address] [place] [address] Pam Eaton 08/29/2025 Patient Outreach [facility] [address] [place] [address] Emerita Cook [facility] 08/29/2025 Refill [facility] [address] [facility] [place] [address] Zan Sidhu MD Type 2 diabetes mellitus treated without insulin (Primary Dx) 08/26/2025 [facility] [address] [place] [address] [place] [address] Pam Eaton 08/25/2025 Telephone [facility] [address], [address] [place] [address] Zan Sidhu MD [facility] Clinical Concern/Question 08/24/2025 Refill [facility] [address] [place] [address] Zan Sidhu MD Hyperlipidemia, unspecified hyperlipidemia type; Type 2 diabetes mellitus treated without insulin 08/24/2025 Telephone [facility] [address] [place] [address] Radha Canas, PharmD 08/10/2025 Telephone [facility] [address] [place] [address] Zan Sidhu MD HCN - Patient Message 08/09/2025 12:25 PM EDT - 08/09/2025 11:59 PM EDT Hospital Encounter [facility] [address] [place] [address] Healthcare maintenance Discharge Disposition: Home or Self Care 08/09/2025 Travel from Last 3 Months Immunizations Immunization Administration Dates Next Due Influenza, High-dose, Split Virus, Trivalent, Injectable, preservative free 08/12/2024 Influenza, high-dose, quadrivalent 08/31/2021 Influenza, injectable, quadrivalent, preservativ e free 09/22/2020,08/18/2019 Moderna COVID-19 Vaccine (Detention Attendant) 12+ years 03/2021,02/14/2021 Pneumococcal 20-laurence Conj Vaccine 01/14/2023 Pneumococcal Polysaccharide PPV23 09/22/2020, Tdap 03/01/2023 Zoster, Recombinant 08/31/2021 Family History Medical History Relation Name Comments Heart Problem Father Other cancer Mother Uterine cancer Mother Relation Name Status Comments Father Mother Social History Tobacco Use Types Packs/Day Years Used Date Smoking Tobacco: Former Cigarettes 1 42.6 1 978 - 06/18/2020 Passive Smoke Exposure: Current Smokeless Tobacco: Never Tobacco Cessation:Counseling Given: Not Answered Alcohol Use Standard Drinks/Week Comments No 0 [...] Never 08/21/2023 How often do you attend [facility] or faith services? More than 4 times per year 08/21/2023 Do you belong to any clubs o r organizations such as cheondoism groups, unions, fraternal or athletic groups, or [...] Recorded Patient Health Questionnaire-2 Score 0 05/05/2025 [facility] - Occupational Stress Questionnaire Answer [...] in the past 12 m [facility], were you homeless or living [...] drink first t radha in the morning (EYE-ASSOCIATE FINANCIAL ANALYST) to steady your nerves or to get rid of a hangover? 0 03/01/2023 CAGE Questionnaire Score 0 023 Utilities Answer Date Recorded In the past 12 months has [employer], gas, oil, or water [employer] threatened to shut off services in your home? No 04/04/2025 PHQ-2A Answer Date Recorded Patient Health Questionnaire-2 Score 0 01/14/2023 Comments No Sex and Gender Information Value Date Recorded Sex Assigned at Not on file Legal Sex Female 7:27 PM EDT Gender Identity Not on file Sexual Orientation Not on file Last Filed Vital Signs Vital Sign Reading Time Taken Comments Blood Pressure 120/74 07/13/2025 11:16 AM EDT Pulse 73 07/13/2025 11:16 AM EDT Temperature 36.6 C (97.8 F) 07/13/2025 11:07 AM EDT Respiratory Rate 18 07/13/2025 11:07 AM EDT Oxygen Saturation 96% 05/05/2025 10:25 AM EDT Inhaled Oxygen Concentration - - Weight 102 kg (225 lb 15.5 oz) 07/13/2025 11:07 AM EDT Height 165.1 cm (5' 5 ) 07/13/2025 11:07 AM EDT Body Mass Index 37.6 07/13/2025 11:07 AM EDT Plan of Treatment Upcoming Encounters Date Type Department Care Team (Late st Contact Info) Description 11/25/2025 9:30 AM EST Appointment [facility] [address] [place] [address] 11/25/2025 10:30 AM EST Office Visit [facility] [address] [facility]nd [place] [address] Olivia Feldman MD [address] [facility] [address] [place] [address] Health Maintenance Due Date Last Done Comments [facility]-Medicare Annual Wellness (AWV) 1955 [facility]-Infant/Child/Adol SDOH Screenings 1955 Diabetes: Dental Exam 1965 CT Colonography 2000 Colonoscopy 2000 FIT-DNA 2000 FIT 2000 FOBT 2000 Sigmoidoscopy 2000 [facility]-Colorectal Cancer Screening 2000 Lung Cancer Screening Shared Decision Making 2005 [facility]-RSV Vaccine: 60+ Years or (1 - Risk 50-74 years 1-dose series) 2005 [facility]-Zoster Vaccines (2 of 2) 10/26/2021 08/31/2021 [id number] Vaccine ( season) 2025 07/21/2024, 02/07/2022, 03/28/2021, Additional history exists [facility]- SDOH Screenings 10/05/2025 [facility]-Adult SDOH Screenings 10/05/2025 04/04/2025 [facility]-Diabetes: Hemoglobin A1C 01/10/2026, 04/04/2025, 12/08/2024, Additional history exists [facility]-Depression Screening 05/05/2026 05/05/2025, 04/24 [facility]-Lung Cancer Screening 08/09/20262024, 02/05/2024, 06/15/2021, Additional history exists [facility]-Bone Density Scan 05/05/2027 05/05/2025 [facility]-DTaP,Tdap,and Td Vaccines (2 - Td or Tdap) 03/01/2033 03/01/2023 [facility]-Pneumococcal Vaccine: 50+ Years Completed 01/14/2023, 09/22/2020, 12/21/2019 [facility]-Hepatitis C Screening Completed 2024, 03/01/2023, 09/21/2021, Additional history exists [facility]-Obesity Intervention Completed 025, 06/15/2025, 04/29/2025, Additional history exists [facility]-Influenza Vaccine Completed 09/02/2025 , 08/12/2024, 08/31/2021, Additional history exists HPV Vaccines (No Doses Required) Completed [facility]-HIB Vaccines Aged Out No longer e ligible based on patient's age to complete this topic [facility]-Hepatitis A Vaccines Aged Out No longer eligible based on patient's age to complete this topic [facility]-IPV Vaccines Aged Out No longer e ligible based on patient's age to complete this topic [facility]-Rotavirus Vaccines Aged Out No lo nger eligible based on patient's age to complete this topic Procedures Procedure Name Priority Date/Time Associated Diagnosis Comments CT CHEST LUNG CANCER SCREENING Routine 08/09/2025 12:33 PM EDT Healthcare maintenance HEMOGLOBIN A1C Routine 07/13/2025 12:22 PM EDT Type 2 diabetes mellitus treated without insulin (CMS/HCC) DEXA BONE DENSITY Routine 05/05/2025 9:0 2 AM EDT 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 Recommendations: LungRADS 2: Benign appearance or behavior - CT Chest Lung Cancer Screening recommended in 12 months. Modifier: None CRITICAL RESULT: No. COMMUNICATION: Per this written report. Drafted by Leticia Mabry MD on 08/09/2025 1:15 PM Final report signed by Leticia Mabry MD on 08/09/2025 1:23 PM Narrative 08/09/2025 1:23 PM EDT CLINICAL INDICATION: Lung cancer screening; personal history of tobacco use. TECHNIQUE: Multiple CT helical images were obtained from thoracic inlet through upper abdomen without contrast. A low radiation dose protocol was utilized. The imaging protocol used in this examination was optimized to achieve diagnostic quality with the lowest possible radiation dose in accordance with the principles of ALARA (As Low As Reasonably Achievable). COMPARISON: 02/05/2024 FINDINGS: Mediastinum and Pleura: No adenopathy. Coronary Calcium: Yes, mild. Lungs: No suspicious pulmonary nodules. Few tiny bilateral nodules are stable Upper Abdomen: No suspicious lesion in the partially visualized upper abdomen. Please note that the low dose technique utilized for this examination is optimized for pulmonary nodule evaluation and has limited sensitivity for detection of abdominal abnormalities. Musculoskeletal: Mild degenerative changes of the spine. Procedure Note Leticia Mabry MD - 08/09/2025 CLINICAL INDICATION: Lung cancer screening; personal history of tobacco use. TECHNIQUE: Multiple CT helical images were obtained from thoracic inlet through upperabdomen without contrast. A low radiation dose protocol was utilized. The imaging protocol used in this examination was optimized to achievediagnostic quality with the lowest possible radiation dose in accordancewith the principles of ALARA (As Low As Reasonably Achievable). COMPARISON: 02/05/2024 FINDINGS: Mediastinum and Pleura: No adenopathy. Coronary Calcium: Yes, mild. Lungs: No suspicious pulmonary nodules. Few tiny bilateral nodules arestable Upper Abdomen: No suspicious lesion in the partially visualized upperabdomen. Please note that the low dose technique utilized for thisexamination is optimized for pulmonary nodule evaluation and has limitedsensitivity for detection of abdominal abnormalities. Musculoskeletal: Mild degenerative changes of the spine. IMPRESSION: Negative screening examination. Recommendations: LungRADS 2: Benign appearance or behavior - CT Chest Lung Cancer Screeningrecommended in 12 months. Modifier: None CRITICAL RESULT: No. COMMUNICATION: Per this written report. Drafted by Leticia Mabry MD on 08/09/2025 1:15 PM Final report signed by Leticia Mabry MD on 08/09/2025 1:23 PM [facility] IM[facility] CT PROCEDURES Final Result * (ABNORMAL) Hemoglobin A1c (07/13/2025 12:22 PM EDT) Hemoglobin A1c 5.9(H) <5.7 % 07/13/2025 3:[address] [facility] Blood Venous blood specimen / Unknown Venipuncture / Unknown 07/13/2025 12:22 PM EDT 07/13/2025 12:[address] [facility] - 07/13/2025 3:42 PM EDT HA1C Interpretive Data: Diagnosis of Diabetes: Diabetic > or = 6.5% Pre-diabetic 5.7 to 6.4% Non-diabetic < or = 5.6% Glycemic Targets for Type I and Type II Diabetics: Non- Adults <7.0% Adults <6.0% Children and Adolescents <7.5% Source: [place] [employer]. Standards of medical care in diabetes,2017. Diabetes Care.2017:40 (suppl 1):S1-S135. us [facility] BLOOD ORDERABLES Final Resu lt [facility] [address] [place] [address] * Dexa Bone Density (05/05/2025 9:02 AM EDT) Anatomical Region Laterality Modality L-spine Radio Fluoroscop y Narrative 05/09/2025 8:20 AM EDT [facility] [address] [place] [address], [place] [address] DXA Bone Densitometry Report: [Date of exam] BMD test performed using the Exhbit DXA System (analysis version: 14.10) manufactured by [employer]. REFERRING PROVIDER: SEN Rhodes CLINICAL INFORMATION:postmenopausal, aromatase inhibitor PATIENT NAME: Jacob Hugo PATIENT AGE: 69 y.o. LEGAL SEX: female RADIOGRAPHIC VIEWS: Sites scanned: AP Spine, HIP Right , HIP Left, and TBS COMPARISON STUDY: DXA Axial 03/29/2021 FINDINGS: Based on WHO criteria (post-menopausal female) the diagnosis is Normal bone density There is Stability compared to prior measurements TBS: The TBS L1-L4 of 1.383 indicates normal microarchitecture TREATMENT RECOMMENDATIONS: Measured bone density does not cross threshold for treatment Suggest general measures to optimize calcium and vitamin D status, fall prevention measures and reduce fracture risk. Consider repeating this study in 2 year(s) or as clinically indicated to assess bone density change or response to treatment (should be performed on the same DXA scanner to allow for direct comparison and calculation of change in BMD). us Peg [facility] IMG DXA PROCEDURES Final Resu lt * Hepatitis C Antibody - ED (02/15/2025 2:00 PM EDT) Pathologist [facility] Hepatitis C Antibody Negative Negative 02/15/2025 2:40 PM EDT [facility] Blood Venous blood specimen / Unknown Venipuncture / Unknown 02/15/2025 2:00 PM EDT 02/15/2025 2:03 PM EDT [facility] BLOOD ORDERABLES Final Res ult [facility] [address] [place] [phone] from Last 3 Months or Most Recently Relevant to Health Maintenance Insurance [facility] MEDICARE Care Teams Business Operations Director Relationship Specialty Start Date End Date Zan Sidhu MD [address] [place] [address] PCP - General Internal Medicine 05/24/25
--- OUTSIDE RECORDS SUMMARY | 2025-11-05 21:23 | XMS_ITS | Patient Health Record ---
Author Organization [facility] Address [address] [place] [id number] Care Team Providers Care Ecd Name Role Phone Unknown, PCP Primary Care Provider Anila Jordan Unavailable [phone] Allergies Allergen (clinical drug ingredient) Drug/Non Drug Allergy documented on EMR Reaction Allergy Type Onset Date Status phenytoin Dilantin Unknown Drug Allergy Active codeine Codeine Unknown Drug Allergy Active Penicillin Unknown Drug Allergy Active Substance with sulfonamide structure and antibacterial mechanism of action (substance) Sulfa Antibiotics Unknown Drug Allergy Active Reason For Referral No Information Medications Medication SIG (Take, Route, Frequency, Duration) Notes Start Date End Date Status Losartan Potassium 100 MG Oral; Duration: 90 Days Active metFORMIN HCl 500 MG Oral; Duration: 90 Days Active Citalopram Hydrobromide 40 MG Oral; Duration: 90 Days Acti ve Atorvastatin Calcium 20 MG Oral; Duration: 90 Days Active Levothyroxine Sodium 100 MCG Oral; Duration: 90 Days Active carBAMazepine 200 MG Oral; Duration: 90 Days Active hydrOXYzine HCl 50 MG Oral; Duration: 90 Days Active Famotidine 20 MG Oral; Duration: 90 Days Active Anastrozole 1 MG Oral; Duration: 90 Days Active amLODIPine Besylate 10 MG Oral; Duration: 90 Days Active Loperamide HCl 2 MG Oral; Duration: 8 Days Active Albuterol Sulfate HFA 108 (90 Base) MCG/ACT Inhalation; Duration: 90 Days Active Social History Tobacco Use: Social History Observation Description Date Details (start date - stop date) Former Smoker NA - NA Tobacco Control (Standard) Question Answer Notes Tobacco use: Former smoker How long has it been since you last smoked? Grea ter than 10 years AUDIT-C (Standard) Question Answer Notes Did you have a drink containing alcohol in the p ast year? No Points 0 Interpretation Negative Problems Problem Type SNOMED Code ICD Code Onset Dates Problem Status W/U Status Risk Notes Problem Anxiety (40084018) Anxiety (F41.9) Active confirmed Problem Hypertension (08608376) Hypertension (I10) Active confirmed Problem Breast cancer (034342294) Breast cancer (C50.919) Active confirmed Problem Obese class I (finding) (644534503627413 ) Obesity (BMI 30.0-34.9) (E66.9) Active confirmed Vital Signs Temperature 97.8 degrees Fahrenheit 06/28/2025 Respiratory Rate 18 /min 06/28/2025 Oximetry 93 06/28/2025 Blood pressure diastolic 60 mm Hg 06/28/2025 Height 065 in 06/28/2025 Blood pressure systolic 120 mm Hg 06/28/2025 Weight 0210 lbs 06/28/2025 BMI 34.94 kg/m2 06/28/2025 Encounters Encounter Location Date Provider Diagnosis [facility] [address] [place] [address] 06/28/2025 Anila Conrad Conjunctivitis, acute, right eye H10.31 and Obesity (BMI 30.0-34.9) E66.9 Assessments Encounter Date Diagnosis (ICD Code) Assessment Notes Treatment Notes Treatment Clinical Notes Section Notes 06/28/2025 Obesity (BMI 30.0-34.9) (ICD-10 - E66.9) Learning About Obesity material was published 06/28/2025 Conjunctivitis , acute, right eye (ICD-10 - H10.31) [place]: Care Instructions material was published. See eye doctor if symptoms don't improve after course of antibiotic drops. Go to eye doctor or ED if you start experiencing eye pain or vision changes. 06/28/2025 Other Polymyxin B and Trimethoprim Ophthalmic material was published Plan Of Treatment No Information Insurance Providers Payer Name Payer Address Payer Phone Subscriber Number Group Number Insured Name Patient Relationship to Insured Coverage Start Date Coverage End Date [employer] [address] [address] [place] [address] [id number] Jacob Hugo Self - patient is the insured Medical (General) History Medical History History ICD Code Seizure R56.9 Anxiety F41.9 Hypertension I10 Breast cancer C50.919 Surgical History Surgery Date(Month/Year) brock hyst right breast mascectomy Hospitalization History Reason Date(Month/Year) good katt neal-bump, blacked out brock
--- OUTSIDE RECORDS SUMMARY | 2025-11-05 21:23 | XMS_ITS | Encounter Summary ---
Author Organization Healthcare Address [address] [place] [address] Care Team Providers Care Firewall Security Engineer Name Role Phone Whitney Hoover Primary Care Provider Negar Diaz Unavailable Unavailable Kiley Briggs Unavailable Unavailable Zan Sidhu MD Primary Care Provider [phone] Emerita Cook Unavailable Unavailable Reason for Visit * Reason Comments Med Refill Encounter Details Date Type Department Care Team (Late st Contact Info) Description 09/08/2024 Refill [facility] [address] [place] [address] Denis Higginbotham MD [address] [place] [address] Social History Tobacco Use Types Packs/Day Years [...] been afraid of your partner or ex-partner? No 08/21/2023 Within the last year, have y ou been humiliated or emotionally abused in other ways by your partner or ex-partner? No Within the last year, have y ou been kicked, hit, slapped, or otherwise physically hurt by your partner or ex-partner? No 08/21/2023 Within the last year, have y ou been raped or forced to have any kind of sexual activity by your partner or ex-partner? No 08/21/2023 Social Connection and Isolation Panel Answer Date Recorded In a typical week, how many times do you talk on the phone with family, friends, or neighbors? More than three times a week 08/21/2023 How often do you get togethe r with friends or relatives? Never 08/21/2023 How often do you attend chur ch or samaritan services? More than 4 times per year 08/21/2023 Do you belong to any clubs o r organizations such as moravian groups, unions, fraternal or athletic groups, or [...] Answer Date Recorded Patient Health Questionnaire-2 Score 2 08/02/2024 [facility] Occupat ional Health - Occupational [...] you got the money to buy more. Often true 08/21/20 23 Within the past 12 months, t he food you bought just didn't last and you didn't have money to get more. Often true 08/21/2023 PRAPARE - Transportation Answer Date Re corded In the past 12 months, has l ack of transportation kept you from medical appointments or from getting medications? Yes 07/26 In the past 12 months, has l ack of transportation kept you from meetings, work, or from getting things needed for daily living? Yes 08/21/2023 Housing Stability Vital Sign Answer Michi e [...] in a longterm (including now)? No 08/09/2024 CAGE ASSESSMENT Answer Date Recorded Cage unable [...] drink first t radha in the morning (EYE-LEGAL EXECUTIVE) to steady your nerves or to get rid of a hangover? 0 03/01/2023 CAGE Questionnaire Score 0 023 PHQ-2A Answer Date Recorded Patient Health Questionnaire-2 Score 0 01/14/2023 Comments No Sex and Gender Information Value Date Recorded Sex Assigned at Not on file Legal Sex Female 7:27 PM EDT Gender Identity Not on file Sexual Orientation Not on file documented as of this encounter Miscellaneous Notes * Telephone Encounter - Whitney Hoover MD - 09/08/2024 12:56 PM EDT documented in this encounter Plan of Treatment Upcoming Encounters Date Type Department Care Team (Late st Contact Info) Description 11/25/2025 9:30 AM EST [facility]ointment [facility] [address] [place] [address] 11/25/2025 10:30 AM EST Office Visit [facility] [address] [facility], 2nd [place] [address] Olivia Feldman MD [address] [facility] [address] [place] [address] documented as of this encounter Visit Diagnoses Not on filedocumented in this encounter Additional Health Concerns Assessment Noted Time A fall risk assessment has been complete d for the patient 08/02/2024 11:12 AM EDT A Body Mass Index follow-up plan has been documented for the patient 08/31/2024 1:06 AM EDT documented as of this encounter Care Teams Firewall Security Engineer Relationship Specialty Start Date End Date Whitney Hoover [address] [place] [address] PCP - General 04/06/21 05/23/25 Zan Sidhu MD [address] [place] [address] PCP - General Internal Medicine 05/24/25 Negar Diaz Community Health Worker 12/10/24 Kiley Briggs Community Health Worker 04/04/25 04/07/25 [place] [address] Zumba Instructor 09/01/25 10/31/25 documented as of this encounter
--- OUTSIDE RECORDS SUMMARY | 2025-11-05 21:23 | XMS_ITS | Encounter Summary ---
Author Organization Healthcare Address [address] [place] [id number] Care Team Providers Care Windchill Administrator Name Role Phone Zan Sidhu MD Primary Care Provider [phone] Emerita Cook Unavailable Unavailable Reason for Visit * Reason Onset Date Comments HCN - Patient Message 08/10/2025 Encounter Details Date Type Department Care Team (Late st Contact Info) Description 08/10/2025 Telephone [facility] Internal Medicine [address], [address] [place] [address] Zan Sidhu MD [address] [place] [phone] HCN - Patient Message Social History Tobacco Use Types Packs/Day Years [...] often do you attend chur ch or holiness services? More than 4 times per year 08/21/2023 Do you belong to any clubs o r organizations such as shinto groups, unions, fraternal or athletic groups, or [...] Recorded Patient Health Questionnaire-2 Score 0 05/05/2025 [facility] of Occupat ional Health - Occupational [...] any time in the past 12 m [facility], were you homeless or living in a [...] drink first t radha in the morning (EYE-DRIVER UTILITY WORKER) to steady your nerves or to get [...] Miscellaneous Notes * Telephone Encounter - Awilda Russo - 08/11/2025 1:20 PM EDT Patient notified screening was negative and repeat in a year. * Telephone Encounter - Awilda Russo - 08/11/2025 9:23 AM EDT [facility] pt to call * Telephone Encounter - Jacquelyn Steward - 08/10/2025 12:52 PM EDT Status Update Call #2 2nd call regarding the status of the initial request. Best contact number: [phone] (mobile) Optimal time of day to reach caller: OTHER: Today if possible because patient will be at [facility] tomorrow Additional comments/information from caller: Patient calling back to check status on getting a callback with results. Note: Please do not reply to this message. Follow-up communication and further actions as a result of this message need to be communicated with the patient directly, if the patient is not active onMyChart. If the patient is active on MyChart, they will receive notification of the communication/outcome via [employer]. * Telephone Encounter - Shira Bui - 08/10/2025 12:36 PM EDT Status Update Call #1 1st call regarding the status of the initial request. Best contact number: [phone] (mobile) Optimal time of day to reach caller: ANYTIME Additional comments/information from caller: None Note: Please do not reply to this message. Follow-up communication and further actions as a result of this message need to be communicated with the patient directly, if the patient is not active onMyChart. If the patient is active on MyChart, they will receive notification of the communication/outcome via MyChart. * Telephone Encounter - Katrin Cervnates - 08/10/2025 10:29 AM EDT Clinical Concern/Question Reason for Call: Pt calling to request a call back to go over results for lung screening. Pt is requesting a call back Please advise. Best contact number: [phone] (mobile) Optimal time of day to reach caller: ANYTIME Additional comments/information from caller: None Note: Please do not reply to this message. Follow-up communication and further actions as a result of this message need to be communicated with the patient directly, if the patient is not active onMyChart. If the patient is active on MyChart, they will receive notification of the communication/outcome via MyChart. documented in this encounter Plan of Treatment Upcoming Encounters Date Type Department Care Team (Late st Contact Info) Description 11/25/2025 9:30 AM EST Appointment [facility] [place] [address] [address] [facility] [address] [place] [address] 11/25/2025 10:30 AM EST Office [facility] [address] [facility], [address]nd [place] [address] Olivia Feldman MD [address] [facility] [address] [place] [address] documented as of this encounter [...] documented as of this encounter Care Teams Windchill Administrator Relationship Specialty Start Date End Date Zan Sidhu MD [address] [place], [place] [id number] PCP - General Internal Medicine 05/24/25 [place] [address] Weight Calculator 09/01/25 10/31/25 documented as of this encounter
--- OUTSIDE RECORDS SUMMARY | 2025-11-05 21:23 | XMS_ITS | Encounter Summary ---
Author Organization Healthcare Address [address] [place] [id number] Care Team Providers Care Concrete Bucket Unloader Name Role Phone Whitney Hoover Primary Care Provider [phone] Nela Greenberg RN Unavailable Unavailable Nancy Vo BUSINESS OPERATIONS SPECIALIST Unavailable Unavailable Cada, Kiley Unavailable Unavailable Meeta ChristopherW Unavailable [phone] Jen Mcknight Unavailable Unavailable Negar Diaz Unavailable Unavailable Cada, Kiley Unavailable Unavailable Zan Sidhu MD Primary Care Provider [phone] Emerita Cook Unavailable Unavailable Reason for Visit * Reason Comments Med Refill Encounter Details Date Type Department Care Team (Late st Contact Info) Description 01/31/2022 Refill [facility] Internal Medicine [address], [address] [place] [address] Whitney Hoover [address] [place] [address] Gastroesophageal reflux disease, unspecified whether esophagitis present Social History Tobacco Use Types Packs/Day Years Used Date Smoking Tobacco: Former Cigarettes 1 48 0 06/18/1972 - 06/18/2020 Smokeless Tobacco: Never Alcohol Use Standard Drinks/Week Comments No 0 (1 standard drink = 0.6 oz pure alcohol) Alcoholic Drinks/day: No history of alcohol use PHQ-2 Answer Date Recorded Patient Health Questionnaire-2 Score 0 09/21/2021 Comments No Sex and Gender Information Value Date Recorded Sex Assigned at Not on file Legal Sex Female 7:27 PM EDT Gender Identity Not on file Sexual Orientation Not on file COVID-19 Exposure Response Date Recorded In the last month, have you been in contact with someone who was confirmed or suspected to have Coronavirus / COVID-19? No / Unsure 01/18/2022 8:07 AM EST documented as of this encounter Plan of Treatment Upcoming Encounters Date Type Department Care Team (Late st Contact Info) Description 11/25/2025 9:30 AM EST Appointment [facility] [address] [place] [address] 11/25/2025 10:30 AM EST [facility] [address] [facility], [address]nd [place] [address] Olivia Feldman MD [address] [facility] [address] [place] [address] documented as of this encounter Visit Diagnoses Diagnosis Gastroesophageal reflux disease, unspecified whether esophagitis present documented in this encounter Additional Health Concerns Infection Onset Date Last Indicated Resolved Time C. difficile Rule-Out 06/19/2022 06/20/20222021 2:37 PM EDT Gastrointestinal Rule-Out 06/19/2022 06/20/2022 5:22 PM EDT C. difficile 06/20/2022 06/20/2022 03/03/2023 2:42 PM EDT C. difficile Rule-Out 07/19/2023 07/20/20232022 12:51 PM EDT Gastrointestinal Rule-Out 01/21/2024 01/21/2024 7:49 PM EST Assessment Noted Time A fall risk assessment has been complete d for the patient 01/11/2022 4:15 PM EST documented as of this encounter Care Teams Concrete Bucket Unloader Relationship Specialty Start Date End Date Whitney Hoover [address] [place] [address] PCP - General 04/06/21 05/23/25 Zan Sidhu MD [address] [place] [address] PCP - General Internal Medicine 05/24/25 Nela Greenberg, RN [address] [place] [address] Registered Nurse 07/12/22 2 Nancy Vo LPN [employer] [address] None TCM Nurse 08/21/23 09/17/23 Kiley Briggs Plate Drying Machine Tender 08/21/23 08/21/23 Meeta Christopher, [facility] [address] [address] Sports Cartoonist Plate Drying Machine Tender 08/22/23 09/19/23 Jen Mcknight Community Health Worker 08/09/24 08/11/24 Negar Diaz Community Health Worker 12/10/24 02/11/25 Kiley Briggs Community Health Worker 04/04/25 04/07/25 [place] [address] Resource Development Manager 09/01/25 10/31/25 documented as of this encounter
--- OUTSIDE RECORDS SUMMARY | 2025-11-05 21:23 | XMS_ITS | Encounter Summary ---
Author Organization Healthcare Address [address] [place] [address] Care Team Providers Care Hollock Maker Name Role Phone Whitney Hoover Primary Care Provider [phone] Nancy Vo LPN Unavailable Unavailable Meeta Christopher SENIOR NETWORK ENGINEER Unavailable [phone] Jen Mcknight Unavailable Unavailable Negar Diaz Unavailable Unavailable Kiley Briggs Unavailable Unavailable Zan Sidhu MD Primary Care Provider [phone] Emerita Cook Unavailable Unavailable Reason for Visit * Reason Comments Med Refill Encounter Details Date Type Department Care Team (Late st Contact Info) Description 09/02/2023 Refill [facility] Internal Medicine [address] [place] [address] Whitney Hoover [address] [place] [address] Social History Tobacco Use Types Packs/Day Years Used Date Smoking Tobacco: Former Cigarettes 1 48 0 06/18/1972 - 06/18/2020 Smokeless Tobacco: Never Alcohol Use Standard Drinks/Week Comments No 0 (1 standard drink = 0.6 oz pure alcohol) Alcoholic Drinks/day: No history of alcohol use Humiliation, Afraid, Rape, and Kick questionnair e [...] Never 08/21/2023 How often do you attend [facility] or methodist services? More than 4 times per year 08/21/2023 Do you belong to any clubs o r organizations such as anabaptism groups, unions, fraternal or athletic groups, or [...] Recorded Patient Health Questionnaire-2 Score 0 01/14/2023 [facility] of Occupat ional Health - Occupational Stress [...] money to buy more. Often true 08/21/20 Within the past 12 months, t he [...] the mortgage or rent on time? No 08/21/2023 In the last 12 months, how many places have you lived? 1 08/21/2023 In the last 12 months, was t here a time when you did not have a steady place to sleep or slept in a custodial (including now)? No 08/21/2023 CAGE ASSESSMENT Answer Date Recorded Cage unable [...] drink first t radha in the morning (EYE-PROFESSOR OF THEATER) to steady your nerves or to get [...] [facility] [address] [place] [address] 11/25/2025 10:30 AM EST Office Visit [facility] [address] [facility], 2nd [place] [address] Olivia Feldman MD [address] [facility] [address] [place] [address] documented as of this encounter Visit Diagnoses Not on filedocumented in this encounter Additional Health Concerns Infection Onset Date Last Indicated Resolved Time Gastrointestinal Rule-Out 01/21/2024 01/21/2024 7:49 PM EST Assessment Noted Time A fall risk assessment has been complete d for the patient 01/14/2023 10:15 AM EST A Body Mass Index follow-up plan has been documented for the patient 01/14/2023 10:53 AM EST documented as of this encounter Care Teams Hollock Maker Relationship Specialty Start Date End Date Whitney Hoover [address] [place] [address] PCP - General 04/06/21 05/23/25 Zan Sidhu MD [address] [place], [place] [id number] PCP - General Internal Medicine 05/24/25 Nancy Vo LPN VALUE-BASED [place] [address] None TCM Nurse 08/21/23 09/17/23 Meeta Christopher LCSW [address] [place] [address] [employer] Healer Grain Combiner 08/22/23 09/19/23 Jen Mcknight Community Health Worker 08/09/24 08/11/24 Negar Diaz Community Health Worker 12/10/24 02/11/25 Kiley Briggs Community Health Worker 04/04/25 04/07/25 [place] [address] Physician Executive 09/01/25 10/31/25 documented as of this encounter
--- OUTSIDE RECORDS SUMMARY | 2025-11-05 21:23 | XMS_ITS | Encounter Summary ---
Author Organization Healthcare Address [address] [place] [address] Care Team Providers Care Rn Plastics Name Role Phone Zan Sidhu MD Primary Care Provider [phone] Emerita Cook Unavailable Unavailable Reason for Visit * Reason Comments [facility] Encounter Details Date Type Department Care Team (Late st Contact Info) Description 10/24/2025 Patient Outreach [facility] [address] [place] [address] Emerita Cook [facility] Social History [...] Never 08/21/2023 How often do you attend [facility] or christian services? More than 4 times per year 08/21/2023 Do you belong to any clubs o r organizations such as confucianism groups, unions, fraternal or athletic groups, or [...] Recorded Patient Health Questionnaire-2 Score 0 05/05/2025 [facility] of Occupat ional Health - [...] any time in the past 12 m [facility], were you homeless or living in a [...] drink first t radha in the morning (EYE-PARAKEET RAISER) to steady your nerves or to get [...] * Progress Notes - Emerita Cook - 10/24/2025 11:59 PM EST Referral Date: 08/26/2025 Referral Source: Referral Request: [facility] Navigator received referral requesting [...] to respond, Ms. Hugo reported that a confucianism member has her black folder and she does not want anyone to be over her. 10/31/2025 Unable to reach patient. She has missed several recent appointments but [facility] revealed letters were sent out. Emerita Cook (Candy) [phone] documented in this encounter Plan of Treatment Upcoming Encounters Date Type Department Care Team (Late st Contact Info) Description 11/25/2025 9:30 AM EST Appointment [facility] [address] [address] 11/25/2025 10:30 AM EST [facility] [address] [place] [address] Olivia Feldman MD [address] [facility] [address] [place] [address] documented as of this encounter Visit Diagnoses [...] documented as of this encounter Care Teams Rn Plastics Relationship Specialty Start Date End Date Zan Sidhu MD [address] [place] [address] PCP - General Internal Medicine 05/24/25 [place] [address] Varnisher 09/01/25 10/31/25 documented as of this encounter
--- OUTSIDE RECORDS SUMMARY | 2025-11-05 21:23 | XMS_ITS | Encounter Summary ---
Author Organization Healthcare Address [address] [id number] Care Team Providers Care Supervisor Stage Carpentry Name Role Phone Zan Sidhu MD Primary Care Provider Emerita Cook Unavailable Unavailable Encounter Details Date Type Department Care Team (Late st Contact Info) Description 10/27/2025 [facility] Internal Medicine [address], [address] [place] [address] Zan Sidhu MD [address] [place] [id number] Seizure disorder (CMS/HCC) Social History Tobacco Use Types Packs/Day Years [...] often do you attend chur ch or denominational services? More than 4 times per year 08/21/2023 Do you belong to any clubs o r organizations such as baptism groups, unions, fraternal or athletic groups, or [...] Recorded Patient Health Questionnaire-2 Score 0 05/05/2025 [facility] of Occupat ional Health - Occupational [...] any time in the past 12 m [facility], were you homeless or living in a [...] drink first t radha in the morning (EYE-RESIN SHAVER) to steady your nerves or to get rid of a hangover? 0 03/01/2023 CAGE Questionnaire Score 0 023 Utilities Answer Date Recorded In the past 12 months has e electric, gas, oil, or water [place] threatened to shut off services in your home? No 04/04/2025 PHQ-2A Answer Date Recorded Patient Health Questionnaire-2 Score 0 01/14/2023 Comments No Sex and Gender Information Value Date Recorded Sex Assigned at Not on file Legal Sex Female 7:27 PM EDT Gender Identity Not on file Sexual Orientation Not on file documented as of this encounter Miscellaneous Notes * Telephone Encounter - Fanny Hunt PharmD - 10/31/2025 9:13 PM EST 1 medication(s) has been approved per protocol. documented in this encounter Plan of Treatment Upcoming Encounters Date Type Department Care Team ([facility] st Contact Info) Description 11/25/2025 9:30 AM EST Appointment [facility] [place] [address] [address] [facility] [address] [place] [address] 11/25/2025 10:30 AM EST Office Visit [facility] [place] [address] [facility], 2nd [place] [address] Olivia Feldman MD [address] [facility] [address] [address] documented as of this encounter Visit Diagnoses Diagnosis Seizure disorder ([facility]) Unspecified epilepsy without mention of intractable epilepsy documented in this encounter Additional Health Concerns Assessment Noted Time PHQ-9 Depression Total Score: 0 05/05/20 25 10:21 AM EDT A fall risk assessment has been complete d for the patient 07/13/2025 11:13 AM EDT A Body Mass Index follow-up plan has been documented for the patient 07/13/2025 11:59 AM EDT documented as of this encounter Care Teams Supervisor Stage Carpentry Relationship Specialty Start Date End Date Zan Sidhu MD [address] [place] [address] PCP - General Internal Medicine 05/24/25 [place] [address] Hoop Riveter 09/01/25 10/31/25 documented as of this encounter
--- OUTSIDE RECORDS SUMMARY | 2025-11-05 21:23 | XMS_ITS | Encounter Summary ---
Author Organization Healthcare Address [address] [place] [address] Care Team Providers Care Simulation Engineer Name Role Phone Whitney Hoover Primary Care Provider Jen Mcknight Unavailable Unavailable Negar Diaz Unavailable Unavailable Kiley Briggs Unavailable Unavailable Zan Sidhu MD Primary Care Provider [phone] Emerita Cook Unavailable Unavailable Reason for Visit * Reason Comments Med Refill Encounter Details Date Type Department Care Team (Late st Contact Info) Description 02/16/2024 Refill [facility] Internal Medicine [address], [address] [place] [address] Whitney Hoover [address] [place] [address] Social History Tobacco Use Types Packs/Day Years Used Date Smoking Tobacco: Former Cigarettes 1 42.6 1 978 - 06/18/2020 Smokeless Tobacco: Never Alcohol Use [...] any clubs o r organizations such as restoration groups, unions, fraternal or athletic groups, or [...] Date Recorded Patient Health Questionnaire-2 Score 2 01/21/2024 [facility] - Occupational Stress Questionnaire Answer Date [...] place to sleep or slept in a long term (including now)? No 08/21/2023 CAGE ASSESSMENT Answer [...] drink first t radha in the morning (EYE-PIPE FITTER SUPERVISOR MAINTENANCE) to steady your nerves or to get [...] Telephone Encounter - Whitney Hoover MD - 02/17/2024 11:04 AM EDT Okay to approve 3 month with 3 refills documented in this encounter Plan of Treatment Upcoming Encounters Date Type Department Care Team (Late st Contact Info) Description 11/25/2025 9:30 AM EST Appointment [facility] [address] [place] [address] 11/25/2025 10:30 AM EST Office Visit [facility] [address] [facility], 2nd [place] [address] Olivia Feldman MD [address] [facility] [address] [place] [address] documented as of this encounter Visit Diagnoses Not on filedocumented in this encounter Additional Health Concerns Assessment Noted Time A fall risk assessment has been complete d for the patient 01/21/2024 1:20 PM EST A Body Mass Index follow-up plan has been documented for the patient 02/05/2024 11:26 AM EDT documented as of this encounter Care Teams Simulation Engineer Relationship Specialty Start Date End Date Whitney Hoover [address] [place] [address] PCP - General 04/06/21 05/23/25 Zan Sidhu MD [address] [place] [address] PCP - General Internal Medicine 05/24/25 Jen Mcknight Community Health Worker 08/09/24 08/11/24 Negar Diaz Community Health Worker 12/10/24 Kiley Briggs Community Health Worker 04/04/25 04/07/25 [place] [address] Field Artillery Operations Specialist 09/01/25 10/31/25 documented as of this encounter
--- OUTSIDE RECORDS SUMMARY | 2025-11-05 21:23 | XMS_ITS ---
Author Organization Healthcare Address [address] [place] [address] Care Team Providers Care Bryologist Name Role Phone Zan Sidhu MD Primary Care Provider [phone] Active Problems * This document contains information received from the source organization and may not represent a complete record from that organization. Problem Noted Date Diagnosed Date Hyperlipidemia 10/18/2025 [...] light of her history of breast cancer. group home (current) use of aromatase inhibitors 04/28/2024 Lumbar degenerative disc disease 09/04/2023 At high risk for falls 11/29/2022 Obesity (BMI 35.0-39.9 without comorbidity) 12/26 Vitamin D deficiency 04/03/2021 Overview (10/18/2025): Cholecalciferol 400u daily Recheck labs today Malignant neoplasm of overla pping 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, estrogen receptor positive 03/22/2020 Cancer Staging:Clinical stage from 02/07/2020:Stage IB(cT2, cN0, cM0, G1, ER+, HI+, HER2-) - Unsigned Pathologic stage from 09/06/2020: ypT1c, ypN0(sn), cM0, G1, ER+, HI+, HER2- - Signed by Amna Gerber MD [...] her 2017 - Wants to talk to social media marketing manager; wants us to reach out to her landlord ([phone]), message sent to social media marketing manager - Lives with a roommate, reports he has not paid his rent; she wants to move out before winter (Oct) bc neighbor bothering her - She's been visiting [place] for socialization, playing CONEXANCE MD - clinic SW reached out but was unable to connect with Bouf, she reports her VM was messed up. PLAN - will send message to clinic SW. Confirmed phone number in the chart is correct. Advised Jacob to keep track of phone calls and VM so ROBERT can assist in setting up follow up appointments, transportation to and from diagnostic tests, etc. Gastroesophageal reflux disease without esophagi tis 08/18/2019 Primary hypertension 08/18/2019 Overview (10/18/2025): Takes [id number] daily, Losartan 100mg daily BP in office [...] P/ continue metformin 500 BID. Refilled today. Current Treatment and Therapy Plans No current plan information found. Past Treatment and Therapy Plans No past plan information found. Lifetime Dose Tracking * Chemical Lifetime Dose Automatic Entry Manual Entr y CTDIvol 13.69 mGy 13.69 mGy 0 mGy Radiation (DLP) 519.8 mGy-cm 519.8 mGy-cm 0 mGy-cm Resolved Problems Problem Noted Date Diagnosed Date [...]
--- OUTSIDE RECORDS SUMMARY | 2025-11-05 21:23 | XMS_ITS | Encounter Summary ---
Author Organization Healthcare Address [address] [id number] Care Team Providers Care Research Environmental Scientist Name Role Phone Zan Sidhu MD Primary Care Provider Emerita Cook Unavailable Unavailable Encounter Details Date Type Department Care Team (Late st Contact Info) Description 07/13/2025 Results Follow-Up [facility] Internal Medicine [address], [address]rd [place] [address] Zna Sidhu MD [address] [place] [id number] Social History Tobacco Use Types Packs/Day Years [...] often do you attend chur ch or jew services? More than 4 times per year 08/21/2023 Do you belong to any clubs o r organizations such as yarsani groups, unions, fraternal or athletic groups, or [...] Recorded Patient Health Questionnaire-2 Score 0 05/05/2025 [facility] of Occupat ional [facility] - Occupational Stress Questionnaire Answer Date [...] time in the past 12 m [facility], were you homeless or living in [...] drink first t radha in the morning (EYE-MACHINIST INSTRUCTOR) to steady your nerves or to get rid of a hangover? 0 03/01/2023 CAGE Questionnaire Score 0 023 Utilities Answer Date Recorded In the past 12 months has th e electric, gas, oil, or water [employer] [place] threatened to shut off services in your home? No 04/04/2025 PHQ-2A Answer Date Recorded Patient Health Questionnaire-2 Score 0 01/14/2023 Comments No Sex and Gender Information Value Date Recorded Sex Assigned at Not on file Legal Sex Female 7:27 PM EDT Gender Identity Not on file Sexual Orientation Not on file documented as of this encounter Functional Status * Calculated C-SSRS Risk Score (Lifetime/Recent) Answer Date of Assessment Author No Risk Indicated 07/13/2025 11:12 AM EDT Benigno Becerra * Question Answer Date of Assessment Author 1. Wish to be (Past 1 Month) No 025 11:12 AM EDT Benigno Muir 2. Non-Specific Active Suici gama Thoughts (Past 1 Month) No 07/13/2025 11:12 AM EDT Tomas Muir 6. Suicidal Behavior (Lifetime) No 11:12 AM EDT Benigno Muir documented as of this encounter Miscellaneous Notes * Telephone Encounter - Zan Sidhu MD - 07/13/2025 3:43 PM EDT Images from the original note were not included. Increasing Synthroid to 112mcg daily to start after she finishes her remaining 40 tablets on 08/22/2025. Will plan to recheck TFTs 6 weeks after increase (around 10/03/2025). Zan Sidhu MD Internal Medicine & Pediatrics, PGY-3 [facility] documented in this encounter Plan of Treatment Upcoming Encounters Date Type Department Care Team (Late st Contact Info) Description 11/25/2025 9:30 AM EST Appointment [facility] Breast Care Center Comprehensive [facility] Center [place] [address] [address] [facility] [address] [place] [address] 11/25/2025 10:30 AM EST Office Visit [facility] Breast Care Center [address] [facility], 2nd [place] [address] Olivia Feldman MD [address] [place] [address] [address] [place] [address] documented as of this encounter Visit Diagnoses Diagnosis Acquired hypothyroidism Unspecified hypothyroidism documented in this encounter Additional Health Concerns Assessment Noted Time PHQ-9 Depression Total Score: 0 05/05/20 10:21 AM EDT A fall risk assessment has been complete d for the patient 07/13/2025 11:13 AM EDT A Body Mass Index follow-up plan has been documented for the patient 07/13/2025 11:59 AM EDT documented as of this encounter Care Teams Research Environmental Scientist Relationship Specialty Start Date End Date Zan Sidhu MD [address] [place] [address] PCP - General Internal Medicine 05/24/25 [place] [address] Media Marketing Coordinator 09/01/25 10/31/25 documented as of this encounter
== END 2025-11-05 22:06 | disposition home or self-care (01) ==
PROVIDERS: Emergency Provider Student in an Organized Health Care Education/Training Program; PCP Nurse Practitioner Family
DX: L02.415 Cutaneous abscess of right lower limb (principal)
CPT/HCPCS: 10060; 99283; 99284

== ENCOUNTER 2025-11-21 11:44 | Outpatient (CLI) | payer MEDICARE, SELFPAY ==
--- OUTSIDE RECORDS SUMMARY | 2025-11-21 11:48 | XMS_ITS | Encounter Summary ---
Author Organization Healthcare Address [address] [place] [address] Care Team Providers Care Hand Profiler Name Role Phone Zan Sidhu MD Primary Care Provider Emerita Cook Unavailable Unavailable Encounter Details Date Type Department Care Team (Late st Contact Info) Description 09/19/2025 Telephone [facility] Clinic Medicine Specialties [address], [address]nd [place] [address] Rad Coleman MD [address] [place] [address] Social History Tobacco Use Types [...] any clubs o r organizations such as alevism groups, unions, fraternal or athletic groups, or [...] Recorded Patient Health Questionnaire-2 Score 0 05/05/2025 [facility] of Occupat ional Health - [...] any time in the past 12 m [facility], were you homeless or [...] drink first t radha in the morning (EYE-CHILD DAY CARE TEACHER) to steady your nerves or to [...] Breast Care Center Comprehensive Breast Care Center [facility] [address] [facility] [address] [place] [address] 11/25/2025 10:30 AM EST Office Visit [facility] [address] [facility], 2nd [place] [address] Olivia Feldman MD [address] [facility] [address]ik [facility] [address] [place] [address] documented as of this encounter Visit Diagnoses [...] documented as of this encounter Care Teams Hand Profiler Relationship Specialty Start Date End Date Zan Sidhu MD [address] [place] [address] PCP - General Internal Medicine 05/24/25 [place] [address] Embroidery Operator 09/01/25 10/31/25 documented as of this encounter
--- OUTSIDE RECORDS SUMMARY | 2025-11-21 11:48 | XMS_ITS | Encounter Summary ---
Author Organization Healthcare Address [address] [id number] Care Team Providers Care Swift Tender Name Role Phone Zan Sidhu MD Primary Care Provider Emerita Cook Unavailable Unavailable Encounter Details Date Type Department Care Team (Late st Contact Info) Description 10/07/2025 [facility] Internal Medicine [address], 3rd [place] [address] Zan Sidhu MD [address] [place] [id number] Social History Tobacco Use Types Packs/Day Years [...] often do you attend chur ch or alevism services? More than 4 times per year 08/21/2023 Do you belong to any clubs o r organizations such as denominational groups, unions, fraternal or athletic groups, or [...] Recorded Patient Health Questionnaire-2 Score 0 05/05/2025 [facility] of Occupat ional [facility] - Occupational Stress Questionnaire Answer Date [...] place to sleep or slept in a senior living (including now)? No 08/09/2024 PHQ-9 Answer Date [...] any time in the past 12 m [facility], were you homeless or living in a senior living (including now)? No 04/04/2025 AUDIT-C Answer Date [...] drink first t radha in the morning (EYE-RADIO ANNOUNCER) to steady your nerves or to get rid of a hangover? 0 03/01/2023 CAGE Questionnaire Score 0 023 Utilities Answer Date Recorded In the past 12 months has th e electric, gas, oil, or water [employer] threatened to shut off services in your [...] Breast Care Center Comprehensive Breast Care Center [place] [address] [address] [facility] [address] [place] [address] 11/25/2025 10:30 AM EST Office Visit [facility] Breast Care [place] [address] [facility], 2nd [place] [address] Olivia Feldman MD [address] [facility] [address] [address] documented as of this encounter Visit Diagnoses [...] documented as of this encounter Care Teams Swift Tender Relationship Specialty Start Date End Date Zan Sidhu MD [address] [place] [address] PCP - General Internal Medicine 05/24/25 [place] [address] Payroll Accounting Specialist 09/01/25 10/31/25 documented as of this encounter
--- OUTSIDE RECORDS SUMMARY | 2025-11-21 11:48 | XMS_ITS | Encounter Summary ---
Author Organization Healthcare Address [address] [place] [address] Care Team Providers Care Pin Worker Name Role Phone Zan Sidhu MD Primary Care Provider [phone] Emerita Cook Unavailable Unavailable Reason for Visit * Reason Comments [facility] Encounter Details Date Type Department Care Team (Late st Contact Info) Description 08/29/2025 Patient Outreach POP[facility] [address] [place] [address] Emerita Cook [facility] Social History [...] How often do you attend [facility] or anglican services? More than 4 times per year 08/21/2023 Do you belong to any clubs o r organizations such as faith groups, unions, fraternal or athletic groups, or [...] Recorded Patient Health Questionnaire-2 Score 0 05/05/2025 [facility] of Occupat ional Health - Occupational Stress [...] time in the past 12 m [facility], were you homeless or living in [...] drink first t radha in the morning (EYE-STONE SANDBLASTER) to steady your nerves or to get [...] to respond, Ms. Hugo reported that a faith member has her black folder and she does not want anyone to be over her. Emerita Cho) Joyce [phone] documented in this encounter Plan of Treatment Upcoming Encounters Date Type Department Care Team (Late st Contact Info) Description 11/25/2025 9:[address] [facility] Breast Care Center [facility] Breast Care Center [address] [address] 11/25/2025 10:30 AM EST Office Visit [facility] [address] [facility], 2nd [place] [address] Olivia Feldman MD [address] [facility] [address] [place] [address] documented as of this encounter Visit Diagnoses [...] documented as of this encounter Care Teams Pin Worker Relationship Specialty Start Date End Date Zan Sidhu MD [address] [place] [address] PCP - General Internal Medicine 05/24/25 [place] [address] Medical Supervisor 09/01/25 10/31/25 documented as of this encounter
--- OUTSIDE RECORDS SUMMARY | 2025-11-21 11:48 | XMS_ITS ---
Author Organization [facility] Address [address] [place] [address] Care Team Providers Care Daycare Provider Name Role Phone Zan Sidhu MD Primary Care Provider [phone] ElderCare Navigator Status:Closed (Closed) Program category:Care Coordination Start date:09/01/2025 Enrollment date:09/01/2025 Enrollment reason:Self-enrolled End date:10/31/2025 Close reason:Patient graduated Overview Concern as vulnerable adult Continued Care and Services Coordination
--- OUTSIDE RECORDS SUMMARY | 2025-11-21 11:48 | XMS_ITS | Encounter Summary ---
Author Organization Healthcare Address [address] [place] [address] Care Team Providers Care Application Trainer Name Role Phone Zan Sidhu MD Primary Care Provider JavidJulienne schreiberyl Unavailable Unavailable Encounter Details Date Type Department Care Team (Late st Contact Info) Description 10/06/2025 Refill [facility] [address] [place] [address] Olivia Feldman MD 800 [facility] [address] [place] [address] Malignant neoplasm of overlapping sites [...] How often do you attend chur or confucianism services? More than 4 times per year 08/21/2023 Do you belong to any clubs o r organizations such as zoroastrianism groups, unions, fraternal or athletic groups, or [...] Recorded Patient Health Questionnaire-2 Score 0 05/05/2025 [facility] Occupat [facility] - Occupational Stress Questionnaire Answer [...] place to sleep or slept in a usp (including now)? No 08/09/2024 PHQ-9 Answer Date [...] any time in the past [address] [facility], were you homeless or living in a usp (including now)? No 04/04/2025 AUDIT-C Answer Date [...] drink first t radha in the morning (EYE-IMAGING SYSTEM ADMINISTRATOR) to steady your nerves or to get [...] Care Center Comprehensive Breast Care Center [facility] [address] [place] [address] 11/25/2025 10:30 AM EST Office Visit [facility] [address] [facility], 2nd [place] [address] Olivia Feldman MD [address] [facility] [address] [facility] [address] [place] [address] documented as of this encounter Visit Diagnoses [...] documented as of this encounter Care Teams Application Trainer Relationship Specialty Start Date End Date Zan Sidhu MD [address] [place] [address] PCP - General Internal Medicine 05/24/25 [place] [address] Senior Payroll Specialist 09/01/25 10/31/25 documented as of this encounter
--- OUTSIDE RECORDS SUMMARY | 2025-11-21 11:48 | XMS_ITS | Encounter Summary ---
Author Organization Healthcare Address [address] [place] [id number] Care Team Providers Care Tree Scout Name Role Phone Zan Sidhu MD Primary Care Provider [phone] Emerita Cook Unavailable Unavailable Encounter Details Date Type Department Care Team (Late st Contact Info) Description 10/06/2025 [facility] Internal Medicine [address], 3rd [place] [address] Whitney Hoover MD [address] [place] [address] Type 2 diabetes mellitus without [...] often do you attend chur ch or adventist services? More than 4 times per year 08/21/2023 Do you belong to any clubs o r organizations such as oriental orthodox groups, unions, fraternal or athletic groups, or [...] any time in the past 12 m [facility], were you homeless or living in [...] drink first t radha in the morning (EYE-MULTI TOWNSHIP ASSESSOR) to steady your nerves or to get [...] Breast Care Center Comprehensive Breast Care Center [place] [address] [address] [facility] [address] [place] [address] 11/25/2025 10:30 AM EST Office Visit [facility] Breast Care Center [address] [facility], 2nd [place] [address] Olivia Feldman MD [address] [address] documented as of this encounter Visit Diagnoses [...] documented as of this encounter Care Teams Tree Scout Relationship Specialty Start Date End Date Zan Sidhu MD [address] [place] [address] PCP - General Internal Medicine 05/24/25 [place] [address] Egg Factory Worker 09/01/25 10/31/25 documented as of this encounter
--- OUTSIDE RECORDS SUMMARY | 2025-11-21 11:49 | XMS_ITS | Patient Health Record ---
Author Organization [facility] Address [address] [place] [id number] Care Team Providers Care Acid Bleacher Name Role Phone Unknown, PCP Primary Care Provider Anila Jordan Unavailable [phone] Allergies Allergen (clinical drug ingredient) Drug/Non Drug [...] Status W/U Status Risk Notes Problem Anxiety (38215640) Anxiety (F41.9) Active confirmed Problem Hypertension (44540969) Hypertension (I10) Active confirmed Problem Breast cancer (017814507) Breast cancer (C50.919) Active confirmed Problem Obese class I (finding) (032022100784105 ) Obesity (BMI 30.0-34.9) (E66.9) Active confirmed Vital Signs Temperature 97.8 degrees Fahrenheit 06/28/2025 Respiratory Rate 18 /min 06/28/2025 Oximetry 93 06/28/2025 Blood pressure diastolic 60 mm Hg 06/28/2025 Height 065 in 06/28/2025 Blood pressure systolic 120 mm Hg 06/28/2025 Weight 0210 lbs 06/28/2025 BMI 34.94 kg/m2 06/28/2025 Encounters Encounter Location Date Provider Diagnosis [facility] [address] [place] [address] 06/28/2025 Anila Conrad Conjunctivitis, acute, right eye [...] Date Coverage End Date [employer] [address] [address] [place] [address] [id number] Jacob Hugo Self - patient is the insured Medical (General) History Medical History History ICD Code Seizure R56.9 Anxiety F41.9 Hypertension I10 Breast cancer C50.919 Surgical History Surgery Date(Month/Year) hyst brock right breast mascectomy Hospitalization History Reason Date(Month/Year) good katt neal-bump, blacked out brock
--- OUTSIDE RECORDS SUMMARY | 2025-11-21 11:49 | XMS_ITS ---
Author Organization Healthcare Address [address] [place] [address] Care Team Providers Care Fancy Wire Drawer Name Role Phone Zan Sidhu MD Primary Care Provider [phone] Active Problems * This document contains information [...] light of her history of breast cancer. event manager (current) use of aromatase inhibitors 04/28/2024 Lumbar degenerative disc disease 09/04/2023 At high risk for falls 11/29/2022 Obesity (BMI 35.0-39.9 without comorbidity) 12/26 Vitamin D deficiency 04/03/2021 Overview (10/18/2025): Cholecalciferol 400u daily Recheck labs today Malignant neoplasm of overla pping 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, estrogen receptor positive 03/22/2020 Cancer Staging:Clinical stage from 02/07/2020:Stage IB(cT2, cN0, cM0, G1, ER+, OK+, HER2-) - Unsigned Pathologic stage from 09/06/2020: ypT1c, ypN0(sn), cM0, G1, ER+, OK+, HER2- - Signed by Amna Gerber MD [...] her 2017 - Wants to talk to home health care social worker; wants us to reach out to her landlord ([phone]), message sent to home health care social worker - Lives with a roommate, reports he has not paid his rent; she wants to move out before winter (Oct) bc neighbor bothering her - She's been visiting [place] for socialization, playing [employer] - clinic SW reached out but was unable to connect with [employer], she reports her VM was messed up. PLAN - will send message to clinic SW. Confirmed phone number in the chart is correct. Advised Jacob to keep track of phone calls and VM so ROBERT can assist in setting up follow up appointments, transportation to and from diagnostic tests, etc. Gastroesophageal reflux disease without esophagi tis 08/18/2019 Primary hypertension 08/18/2019 Overview (10/18/2025): Takes [id number] daily, Losartan 100mg daily BP in office [...]
--- OUTSIDE RECORDS SUMMARY | 2025-11-21 11:49 | XMS_ITS | Encounter Summary ---
Author Organization Healthcare Address [address] [place] [id number] Care Team Providers Care Customs Brokerage Agent Name Role Phone Whitney Hoover MD Primary Care Provider + [phone] Nancy Vo LPN Unavailable Unavailable Daria Christopherhangenoveva Grant JEWELRY MAKER Unavailable [phone] Jen Mcknight Unavailable Unavailable Negar Diaz Unavailable Unavailable Kiley Briggs Unavailable Unavailable Zan Sidhu MD Primary Care Provider [phone] Emerita Cook Unavailable Unavailable Reason for Visit * Reason Comments Med Refill Encounter Details Date Type Department Care Team (Late st Contact Info) Description 09/02/2023 Refill [facility] Internal Medicine [address] [place] [address] Whitney Hoover MD [address] [place] [address] Social History Tobacco Use Types [...] Never 08/21/2023 How often [facility] attend [facility] or hinduism services? More than 4 times per year 08/21/2023 Do you belong to any clubs o r organizations such as hindu groups, unions, fraternal or athletic groups, or [...] Recorded Patient Health Questionnaire-2 Score 0 01/14/2023 [facility] - Occupational [...] in a care home (including now)? No 08/21/2023 CAGE ASSESSMENT Answer [...] drink first t radha in the morning (EYE-WAREHOUSE PRODUCTION WORKER) to steady your nerves or to [...] AM EST Appointment [facility] Breast Care [facility] [address] [facility] [address] [place] [address] 11/25/2025 10:30 AM EST Office Visit [facility] Center [address] [facility]nd [place] [address] Olivia Feldman MD [address] [facility] [address] [place] [address] documented as of this encounter [...] documented as of this encounter Care Teams Customs Brokerage Agent Relationship Specialty Start Date End Date Whitney Hoover MD [address] [place] [address] PCP - General 04/06/21 05/23/25 Zan Sidhu MD [address] [place] [address] PCP - General Internal Medicine 05/24/25 Nancy Vo LPN VALUE-BASED [place] [address] None TCM Nurse 08/21/23 09/17/23 Meeta Christopher LCSW [address] [facility] [address] [place] [address] Merchandise Worker Filler Shredding Machine Loader 08/22/23 09/19/23 Jen Mcknight Community Health Worker 08/09/24 08/11/24 Negar Diaz Community Health Worker 12/10/24 02/11/25 Kiley Briggs Community Health Worker 04/04/25 04/07/25 [place] [address] Yard Loader Operator 09/01/25 10/31/25 documented as of this encounter
--- OUTSIDE RECORDS SUMMARY | 2025-11-21 11:49 | XMS_ITS | Encounter Summary ---
Author Organization Healthcare Address [address] [place] [id number] Care Team Providers Care Caul Dresser Name Role Phone Zan Sidhu MD Primary Care Provider Emerita Cook Unavailable Unavailable Encounter Details Date Type Department Care Team (Late st Contact Info) Description 10/27/2025 [facility] Internal Medicine [address] [place] [address] Zan Sidhu MD [address] [place] [id number] Seizure disorder (CMS/HCC) Social History Tobacco Use [...] often do you attend chur ch or advent services? More than 4 times per year 08/21/2023 Do you belong to any clubs o r organizations such as temple groups, unions, fraternal or athletic groups, or [...] any time in the past 12 m [facility], were you homeless or living in a [...] drink first t radha in the morning (EYE-LABORER YARD) to steady your nerves or to get rid of a hangover? 0 03/01/2023 CAGE Questionnaire Score 0 023 Utilities Answer Date Recorded In the past 12 months has e electric, gas, oil, or water [employer] threatened to shut off services in your [...] Upcoming Encounters Date Type Department Care Team ([facility] st Contact Info) Description 11/25/2025 9:30 AM EST Appointment [facility] [place] [address] [address] [facility] [address] [place] [address] 11/25/2025 10:30 AM EST Office Visit [facility] [place] [address] [facility] 2nd [place] [address] Olivia Feldman MD [address] [facility] [address] [address] documented as of this encounter Visit Diagnoses Diagnosis Seizure disorder ([facility]) Unspecified epilepsy without mention of intractable epilepsy [...] documented as of this encounter Care Teams Caul Dresser Relationship Specialty Start Date End Date Zan Sidhu MD [address] [place] [address] PCP - General Internal Medicine 05/24/25 [place] [address] Residential Energy Auditor 09/01/25 10/31/25 documented as of this encounter
--- OUTSIDE RECORDS SUMMARY | 2025-11-21 11:49 | XMS_ITS | Encounter Summary ---
Author Organization Healthcare Address [address] [place] [address] Care Team Providers Care Crusher Assembler Name Role Phone Zan Sidhu MD Primary Care Provider Joyce Emerita Unavailable Unavailable Encounter Details Date Type Department Care Team (Late st Contact Info) Description 08/24/2025 Telephone [facility] [address] [place] [address] Radha Canas, PharmD [address] [facility] [address] [place] [address] Social History Tobacco Use Types [...] often do you attend chur ch or baptism services? More than 4 times per year 08/21/2023 Do you belong to any clubs o r organizations such as anglican groups, unions, fraternal or athletic groups, or [...] Recorded Patient Health Questionnaire-2 Score 0 05/05/2025 [facility] Occupat ional Health - Occupational [...] time in the past 12 m [facility], were you homeless or living [...] drink first t radha in the morning (EYE-POWER TECHNICIAN) to steady your nerves or to [...] Breast Care Center Comprehensive [facility] [address] [facility] [address] [place] [address] 11/25/2025 10:30 AM EST Office Visit [facility] [address] [facility]nd [place] [address] Olivia Feldman MD [address] [facility] [address] [facility] [address] [place] [address] documented as of this encounter Visit Diagnoses [...] documented as of this encounter Care Teams Crusher Assembler Relationship Specialty Start Date End Date Zan Sidhu MD [address] [place] [address] PCP - General Internal Medicine 05/24/25 [place] [address] Stock Order Lister 09/01/25 10/31/25 documented as of this encounter
--- OUTSIDE RECORDS SUMMARY | 2025-11-21 11:49 | XMS_ITS | Encounter Summary ---
Author Organization Healthcare Address [address] [place] [address] Care Team Providers Care Bicycle I Assembler Name Role Phone Whitney Hoover MD Primary Care Provider + [phone] Negar Diaz Unavailable Unavailable Kiley Briggs Unavailable Unavailable Zan Sidhu MD Primary Care Provider [phone] Emerita Cook Unavailable Unavailable Reason for Visit * Reason Comments Med Refill Encounter Details Date Type Department Care Team (Late st Contact Info) Description 09/08/2024 Refill [facility] [address] [place] [address] Denis Higginbotham MD [address] [place] [address] Social History Tobacco Use Types [...] often do you attend chur ch or islam services? More than 4 times per year 08/21/2023 Do you belong to any clubs o r organizations such as nondenominational groups, unions, fraternal or athletic groups, or [...] Recorded Patient Health Questionnaire-2 Score 2 08/02/2024 [facility] ional Health - Occupational [...] place to sleep or slept in a snf (including now)? No 08/09/2024 CAGE ASSESSMENT Answer [...] drink first t radha in the morning (EYE-TELEPHONE ADVICE NURSE) to steady your nerves or to get [...] Center [facility] [address] [place] [address] 11/25/2025 10:30 AM EST Office Visit [facility] Breast Care Center [address] [facility], 2nd [place] [address] Olivia Feldman MD [address] [facility] [address] [place] [address] documented as of this encounter Visit Diagnoses Not on filedocumented in this encounter Additional Health Concerns Assessment Noted Time A fall risk assessment has been complete d for the patient 08/02/2024 11:12 AM EDT A Body Mass Index follow-up plan has been documented for the patient 08/31/2024 1:06 AM EDT documented as of this encounter Care Teams Bicycle I Assembler Relationship Specialty Start Date End Date Whitney Hoover MD [address] [place] [address] PCP - General 04/06/21 05/23/25 Zan Sidhu MD [address] [place] [address] PCP - General Internal Medicine 05/24/25 Negar Diaz Community Health Worker 12/10/24 Kiley Briggs Community Health Worker 04/04/25 04/07/25 [place] [address] Military Nurse 09/01/25 10/31/25 documented as of this encounter
--- OUTSIDE RECORDS SUMMARY | 2025-11-21 11:49 | XMS_ITS | Encounter Summary ---
Author Organization Healthcare Address [address] [address] Care Team Providers Care Rubber Boots And Shoes Repairer Name Role Phone Whitney Hoover MD Primary Care Provider + [phone] Nela Greenberg RN Unavailable Unavailable HatNancy goldman STORE SALES MANAGER Unavailable Unavailable Cada, Kiley Unavailable Unavailable Meeta Christopher MANAGEMENT NURSE RN Unavailable [phone] Jen Mcknight Unavailable Unavailable Negar Diaz Unavailable Unavailable Cada, Kiley Unavailable Unavailable Zan Sidhu MD Primary Care Provider [phone] Emerita Cook Unavailable Unavailable Reason for Visit * Reason Comments Med Refill Encounter Details Date Type Department Care Team (Late st Contact Info) Description 01/31/2022 Refill [facility] Internal Medicine [address] [place] [address] Whitney Hoover MD [address] [place] [address] Gastroesophageal reflux disease, unspecified whether [...] Breast Care Center [facility] [address] [place] [address] 11/25/2025 10:30 AM EST Office Visit [facility] [address] [facility], 2nd [place] [address] Olivia Feldman MD [address] [facility] [address] [place] [address] documented as of this encounter [...] documented as of this encounter Care Teams Rubber Boots And Shoes Repairer Relationship Specialty Start Date End Date Whitney Hoover MD [address] [place] [address] PCP - General 04/06/21 05/23/25 Zan Sidhu MD [address] [place] [address] PCP - General Internal Medicine 05/24/25 Nela Greenberg, RN [address] [place] [address] Registered Nurse 07/12/22 2 Nancy Vo LPN VALUE-[place] [address] None TCM Nurse 08/21/23 09/17/23 Kiley Briggs Mds Rn 08/21/23 08/21/23 Meeta Christopher, [facility] [address] [address] Dish Technician Mds Rn 08/22/23 09/19/23 Jen Mcknight Community Health Worker 08/09/24 08/11/24 Negar Diaz Community Health Worker 12/10/24 02/11/25 Kiley Briggs Community Health Worker 04/04/25 04/07/25 [place] [address] Gamemaster 09/01/25 10/31/25 documented as of this encounter
--- OUTSIDE RECORDS SUMMARY | 2025-11-21 11:49 | XMS_ITS | Clinical Summary ---
Author Organization Healthcare Address [address] [place] [id number] Care Team Providers Care Rock Crusher Operator Name Role Phone Zan Sidhu MD [...] diarrhea 90 capsule 04/07/20 25 Active therapeutic multivitamin-employment appeals examiner als (Theragran-M) tabletIndications: Type 2 diabetes [...] use for testing bid 1 each 08/29/20 Active anastrozole (Arimidex) 1 MG chemo tabletIndications: Malignant neoplasm of 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, estrogen receptor positive Take 1 tablet (1 mg total) by mouth daily. Swallow whole with a drink of water. 90 tablet 3 10/06/20 Active glucose blood (Accu-Chek Ivon Plus) test stripIndications:T ype 2 diabetes mellitus without complication, without long-term current use of insulin Use for testing twice daily 200 strip 10/07/20 Active losartan (Cozaar) 100 MG tablet Take 1 tablet by mouth daily. 90 tablet 10/07/20 Active carBAMazepine (TEGretol) 200 MG tabletIndications: Seizure disorder (CMS/HCC) Take 1 tablet by mouth 3 times a day. 270 tablet 1 10/31/20 Active carBAMazepine (TEGretol) 200 MG tabletIndications: Seizure disorder (CMS/HCC) Take 1 tablet by mouth 3 times a day. 270 tablet 07/13/20 025 Discontin ued(Reord er) Active Problems Problem [...] light of her history of breast cancer. 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 aromatase inhibitors 04/28/2024 Lumbar degenerative disc disease 09/04/2023 At high risk for falls 11/29/2022 Obesity (BMI 35.0-39.9 without comorbidity) 12/26 Vitamin D deficiency 04/03/2021 Overview (10/18/2025): Cholecalciferol 400u daily Recheck labs today Malignant neoplasm of overla pping 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, estrogen receptor positive 03/22/2020 Cancer Staging:Clinical stage from 02/07/2020:Stage IB(cT2, cN0, cM0, G1, ER+, CA+, HER2-) - Unsigned Pathologic stage from 09/06/2020: ypT1c, ypN0(sn), cM0, G1, ER+, CA+, HER2- - Signed by Amna Gerber MD [...] 2017 - Wants to talk to social service liaison; wants us to reach out to her landlord ([phone]), message sent to social service liaison - Lives with a roommate, reports he has not paid his rent; she wants to move out before winter (Oct) bc neighbor bothering her - She's been visiting senior center for socialization, playing [employer] - clinic SW reached out but was unable to connect with Jacob, she reports her VM was messed up. PLAN - will send message to clinic SW. Confirmed phone number in the chart is correct. Advised Jacob to keep track of phone calls and VM so ROBERT can assist in setting up follow up appointments, transportation to and from diagnostic tests, etc. Gastroesophageal reflux disease without esophagi tis 08/18/2019 Primary hypertension 08/18/2019 Overview (10/18/2025): Takes [id number] daily, Losartan 100mg daily BP in office [...] 03/22/2020 0 06/12/2023 Breast cancer screening 01/27/2020 07 Carpal tunnel syndrome 12/21/201904/21 Prediabetes 12/21/2019 01/18/2022 Encounters Date Type Department Care Team Description 10/27/2025 [facility] [address], [address] [place] [address] Zan Sidhu MD Seizure disorder ([facility]) 10/24/2025 Patient Outreach [facility] [address], [address] [place] [address] Emerita Cook [facility] 10/07/2025 [facility] [address], [address] [place] [address] Zan Sidhu MD 10/06/2025 Refill [facility] Internal Medicine [address], [address] [place] [address] Whitney Hoover MD Type 2 diabetes mellitus without complication, without long-term current use of insulin 10/06/2025 Refill [facility] [address] [place] [phone] Olivia Fledman MD Malignant neoplasm of 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, estrogen receptor positive 09/19/2025 Telephone [facility] Internal Medicine [address] [place] [address] Zan Sidhu MD 09/19/2025 Telephone [facility] [address] [place] [address] Olivia Feldman MD 09/19/2025 Telephone [facility] Medicine Specialties [address], [address] [place] [phone] Rad Coleman MD 09/13/2025 Telephone [facility] [address] [place] [phone] Aicha Campbell, PharmD Medication Therapy Management 09/06/2025 [facility] Internal Medicine [address] [place] [address] Pam Eaton 08/29/2025 Patient Outreach [facility] [address] [facility], [address] [place] [address] PetEmerita schreiber [facility] 08/29/2025 Refill [facility] Internal Medicine [address] [place] [address] Zan Sidhu MD Type 2 diabetes mellitus treated without insulin (Primary Dx) 08/26/2025 [facility] Internal Medicine [address] [place] [address] Pam Eaton 08/25/2025 Telephone [facility] Internal Medicine [address], [address] [place] [address] Zan Sidhu MD HCN Clinical Concern/Question 08/24/2025 [facility] [address], [address] [place] [address] Zan Sidhu MD Hyperlipidemia, unspecified hyperlipidemia type; Type 2 diabetes mellitus treated without insulin 08/24/2025 Telephone [facility] [address] [place] [address] Radha Canas, PharmD from Last 3 Months Immunizations Immunization Administration Dates Next Due Influenza, High-dose, Split Virus, Trivalent, Injectable, preservative free 08/12/2024 Influenza, high-dose, quadrivalent 08/31/2021 Influenza, injectable, quadrivalent, preservativ e free 09/22/2020,08/18/2019 Moderna COVID-19 Vaccine (Tax Staff Accountant) 12+ years 03/2021,02/14/2021 Pneumococcal 20-laurence Conj Vaccine [...] Never 08/21/2023 How often do you attend [facility] or mormon services? More than 4 times per year 08/21/2023 Do you belong to any clubs o r organizations such as scientologist groups, unions, fraternal or athletic groups, or [...] Recorded Patient Health Questionnaire-2 Score 0 05/05/2025 [facility] - [...] place to sleep or slept in a mcfp (including now)? No 08/09/2024 PHQ-9 Answer Date [...] any time in the past 12 m [facility], were you homeless or living in a mcfp (including now)? No 04/04/2025 AUDIT-C Answer Date [...] drink first t radha in the morning (EYE-TANK BUILDER) to steady your nerves or to get rid of a hangover? 0 03/01/2023 CAGE Questionnaire Score 0 023 Utilities Answer Date Recorded In the past 12 months has th [email or web address] electric, gas, oil, or water company threatened [...] Info) Description 11/25/2025 9:30 AM EST Appointment [facility] Comprehensive [facility] [address] [place] [address] 11/25/2025 10:30 AM EST Office Visit [facility] [address] [facility], 2nd [place] [address] Olivia Feldman MD [address] [facility] [address] [place] [address] Health Maintenance Due Date Last Done Comments [facility]-Medicare Annual Wellness (AWV) 1955 [facility]-/Child/Adol SDOH Screenings 1955 Diabetes: Dental Exam 1965 CT Colonography 2000 Colonoscopy 2000 FIT-DNA 2000 FIT 2000 FOBT 2000 Sigmoidoscopy 2000 [facility]-Colorectal Cancer Screening 2000 Lung Cancer Screening Shared Decision Making 2005 [facility]-RSV Vaccine: 60+ Years or (1 - Risk 50-74 years 1-dose series) 2005 [facility]-Zoster Vaccines (2 of 2) 10/26/2021 08/31/2021 [id number] Vaccine ( season) 2025 07/21/2024, 02/07/2022, 03/28/2021, [...] DENSITY Routine 05/05/2025 9:0 2 AM EDT senior care (current) use of aromatase inhibitors HEPATITIS C [...] Leticia Mabry MD on 08/09/2025 1:23 PM us Whitney Hoovre MD IMG CT PROCEDURES Final Resu lt * (ABNORMAL) Hemoglobin A1c (07/13/2025 12:22 PM EDT) Hemoglobin A1c 5.9(H) <5.7 % 07/13/2025 3:42 PM EDT [facility] Blood Venous blood specimen / Unknown Venipuncture / Unknown 07/13/2025 12:22 PM EDT 07/13/2025 12:22 PM EDT Narrative [facility] - 07/13/2025 3:42 PM EDT HA1C Interpretive Data: Diagnosis of Diabetes: Diabetic > or = 6.5% Pre-diabetic 5.7 to 6.4% Non-diabetic < or = 5.6% Glycemic Targets for Type I and Type II Diabetics: Non- Adults <7.0% Adults <6.0% Children and Adolescents <7.5% Source: Citizen Of [place] Diabetes Association. Standards of medical care in diabetes,2017. Diabetes Care.2017:40 (suppl 1):S1-S135. us Whitney Hoover MD LAB BLOOD ORDERABLES Final R esult [facility] [address] [place] [address] * Dexa Bone Density (05/05/2025 9:02 AM EDT) Anatomical Region Laterality Modality L-spine Radio Fluoroscop y Narrative 05/09/2025 8:20 AM EDT [facility] [address] [address] DXA Bone Densitometry Report: [Date of exam] BMD test performed using the VericalXA DXA System (analysis version: 14.10) manufactured by [employer]. REFERRING PROVIDER: Dr. Peg Trimble, [place] CLINICAL INFORMATION:postmenopausal, aromatase inhibitor PATIENT NAME: Jacob [...] Antibody - ED (02/15/2025 2:00 PM EDT) Hepatitis C Antibody Negative Negative 02/15/2025 2:40 PM EDT [facility] Blood Venous blood specimen / Unknown Venipuncture / Unknown 02/15/2025 2:00 PM EDT 02/15/2025 2:03 PM EDT us [facility] LAB BLOOD ORDERABLES Final Res ult [facility] [address] [place] [address] from Last 3 Months or Most Recently Relevant to Health Maintenance Insurance Care Teams Rock Crusher Operator Relationship Specialty Start Date End Date Zan Sidhu MD [address] [place] [phone] PCP - General Internal Medicine 05/24/25
--- OUTSIDE RECORDS SUMMARY | 2025-11-21 11:49 | XMS_ITS | Encounter Summary ---
Author Organization Healthcare Address [address] [phone] Care Team Providers Care Pneumatic Press Hand Name Role Phone Whitney Hoover MD Primary Care Provider [phone] Jen Mcknight Unavailable Unavailable Negar Diaz Unavailable Unavailable Kiley Briggs Unavailable Unavailable Zna Sidhu MD Primary Care Provider [phone] Emerita Cook Unavailable Unavailable Reason for Visit * Reason Comments Med Refill Encounter Details Date Type Department Care Team (Late st Contact Info) Description 02/16/2024 Refill [facility] Internal Medicine [address], [address] [place] [address] Whitney Hoover MD [address] [place] [address] Social History Tobacco Use Types [...] often do you attend chur ch or muslim services? More than 4 times per year [...] Recorded Patient Health Questionnaire-2 Score 2 01/21/2024 [facility] - [facility]ational Stress Questionnaire Answer [...] place to sleep or slept in a residential (including now)? No 08/21/2023 CAGE ASSESSMENT Answer [...] drink first t radha in the morning (EYE-GENERAL LABORER) to steady your nerves or to get [...] Breast Care Center Comprehensive Breast Care Center [facility] [address] [place] [address] 11/25/2025 10:30 AM EST Office Visit [facility] [address] [facility]nd [place] [address] Olivia Feldman MD [address] [facility] [address] [place] [address] documented as of this encounter Visit Diagnoses Not on filedocumented in this encounter Additional Health Concerns Assessment Noted Time A fall risk assessment has been complete d for the patient 01/21/2024 1:20 PM EST A Body Mass Index follow-up plan has been documented for the patient 02/05/2024 11:26 AM EDT documented as of this encounter Care Teams Pneumatic Press Hand Relationship Specialty Start Date End Date Whitney Hoover MD [address] [place] [phone] PCP - General 04/06/21 05/23/25 Zan Sidhu MD [address] [place] [address] PCP - General Internal Medicine 05/24/25 Jen Mcknight Community Health Worker 08/09/24 08/11/24 Negar Diaz Community Health Worker 12/10/24 Kiley Briggs Community Health Worker 04/04/25 04/07/25 [place] [address] Rotary Shear Worker Helper 09/01/25 10/31/25 documented as of this encounter
--- OUTSIDE RECORDS SUMMARY | 2025-11-21 11:49 | XMS_ITS | Encounter Summary ---
Author Organization Healthcare Address [address] [place] [address] Care Team Providers Care Clinical Psychology Teacher Name Role Phone Zan Sidhu MD Primary Care Provider [phone] Emerita Cook Unavailable Unavailable Reason for Visit * Reason Comments [facility] Encounter Details Date Type Department Care Team (Late st Contact Info) Description 10/24/2025 Patient Outreach [facility] [address] [place] [address] Emerita Cook [facility] Social History [...] Never 08/21/2023 How often do you attend [facility] or baptist services? More than 4 times per year 08/21/2023 Do you belong to any clubs o r organizations such as orthodox groups, unions, fraternal or athletic groups, [...] Patient Health Questionnaire-2 Score 0 05/05/2025 [facility] - Occupational [...] place to sleep or slept in a intermediate (including now)? No 08/09/2024 PHQ-9 Answer Date [...] any time in the past 12 m [facility], were you homeless or living in a intermediate (including now)? No 04/04/2025 AUDIT-C Answer Date [...] drink first t radha in the morning (EYE-PHARMACY SERVICES DIRECTOR) to steady your nerves or to get [...] to respond, Ms. Hugo reported that a orthodox member has her black folder and she does not want anyone to be over her. 10/31/2025 Unable to reach patient. She has missed several recent appointments but [facility] revealed letters were sent out. Emerita Cook (Candy) [phone] documented in this encounter Plan of Treatment Upcoming Encounters Date Type Department Care Team (Late st Contact Info) Description 11/25/2025 9:30 AM EST Appointment [facility] [address] [address] 11/25/2025 10:30 AM EST Office Visit [facility] [address] [place] [address] Olivia Feldman MD [address] [facility] [address] [place] [address] documented as of this encounter Visit Diagnoses [...] documented as of this encounter Care Teams Clinical Psychology Teacher Relationship Specialty Start Date End Date Zan Sidhu MD [address] [place] [address] PCP - General Internal Medicine 05/24/25 [place] [address] Director Of Sales 09/01/25 10/31/25 documented as of this encounter
--- NOTE | 2025-11-21 13:45 | XR_ITS ---
FINAL REPORT CLINICAL HISTORY: postmenopausal bone loss COMPARISON: None FINDINGS: Using L1-4, the bone mineral density of the spine is 1.081 g/cm2, corresponding to T-score of 0.3, and a Z-score of 2.4. Using the left hip, the bone mineral density of the femoral neck is 0.767 g/cm2, corresponding to a T-score of -0.7, and a Z-score of 1.1. Using the right hip, the bone mineral density of the femoral neck is 0.900 g/cm2, corresponding to a T-score of 0.5, and a Z-score of 2.3. NOTE: T-score: Standard deviation compared with peak bone mass of young adult mean. *Following the recommendations of the International Society of Bone densitometry, classification of hip BMD is based on the lower of two T-scores; total hip or femoral neck. IMPRESSION: Normal bone mineral density of the bilateral hips and lumbar spine. Reviewed, Interpreted and Dictated by Minerva Tate MD Transcribed by Kailey Nazario Authenticated and [facility]
--- NOTE | 2025-11-21 14:00 | MM_ITS ---
PROCEDURE INFORMATION: Exam: MG Left Screening 3D Mammography Exam date and time: 11/21/2025 11:55 AM Age: 69 years old Clinical indication: Screening examination. TECHNIQUE: Imaging protocol: Left Screening tomosynthesis and 2D mammography including computer-aided detection (CAD) when performed. COMPARISON: 1. MG MAMMOGRAPHY BREAST DIAGNOSTIC TOMOSYNTHESIS LEFT 11/04/2024 9:23 AM 2. MG MAMMOGRAPHY BREAST DIAGNOSTIC TOMOSYNTHESIS LEFT 10/27/2023 7:22 AM FINDINGS: MAMMOGRAPHY: Breast composition: There are scattered areas of fibroglandular density. Mass: None. Architectural distortion: None. Calcifications: No suspicious calcifications. Asymmetric density: None. Skin thickening: None. Axillary adenopathy: None. IMPRESSION: No mammographic evidence of malignancy. Annual screening is recommended unless otherwise clinically indicated. ASSESSMENT: BI-RADS Category 1: Negative.
== END 2025-11-21 23:59 | disposition home or self-care (01) ==
LOC: RAD 11:45
PROVIDERS: PCP Nurse Practitioner Family; Visit Provider Nurse Practitioner Family
DX: Z12.31 Encounter for screening mammogram for malignant neoplasm of breast (principal); M81.0 Age-related osteoporosis without current pathological fracture; R92.322 Mammographic fibroglandular density, left breast
CPT/HCPCS: 77063; 77067; 77080